=== PATIENT | male | born 1940 | race African-American/Black ===

== ENCOUNTER → 2019-05-19 | Outpatient (CLI) | payer MEDICARE | LOC: COL.RAD 05-03 09:45 | DX: K76.89 Other specified diseases of liver (principal); N28.1 Cyst of kidney, acquired; R79.89 Other specified abnormal findings of blood chemistry ==

== ENCOUNTER 2020-10-29 18:03 | Inpatient (IN) | payer MEDICARE ==
[~2020-10-29] VITALS: Ht 170.2 cm; Wt 79.8 kg
[2020-10-29 18:39] LABS: COLLECTION METHOD CLEAN CATCH
[2020-10-29 18:43] LABS: BASO % 0.1 % (0.0-2.0); EOS % 0.3 % (0-4.0); GRAN # 6.1 (1.4-6.5); GRAN % 89.7 % (42.2-75.2); LYMPH # 0.4 (1.2-3.4); LYMPH % 6.3 % (20.0-51.0); MEAN CELL VOLUME 93 fl (80.0-100.0); MEAN CORPUSCULAR HEMOGLOBIN 33 pg (27.0-31.0); MEAN CORPUSCULAR HGB CONC 35 g/dl (33.0-37.0); MEAN PLATELET VOLUME 9.8 fl (7.4-10.4); MONO # 0.2 (0.1-0.6); MONO % 3.5 % (1.7-9.3); PLATELET COUNT 188 K/mm3 (130-400); RED BLOOD COUNT 3.96 M/mm3 (4.20-5.60); REDCELL DISTRIBUTION WIDTH-CV 13.2 % (11.5-14.5)
[2020-10-29 18:45] LABS: PH 6 (5-8); SQUAMOUS EPITHELIAL None Seen /hpf; URINE APPEARANCE Clear; URINE BACTERIA None Seen /hpf; URINE BILIRUBIN Negative (NEGATIVE); URINE BLOOD 2+ (NEGATIVE); URINE COLOR Yellow; URINE GLUCOSE Negative (NEGATIVE); URINE KETONE 1+ (NEGATIVE); URINE LEUKOCYTE ESTERASE Negative (NEGATIVE); URINE NITRATE Negative (NEGATIVE); URINE PROTEIN(semi-quant) Negative (NEGATIVE); URINE UROBILINOGEN Negative (NEGATIVE)
[2020-10-29 18:49] LABS: HEMATOCRIT 36.8 % (42.0-52.0)
[2020-10-29 18:55] LABS: ALANINE AMINOTRANSFERASE 38 U/L (4-49); ALBUMIN 2.9 gm/dL (3.5-5.0); ALKALINE PHOSPHATASE 54 U/L (50-136); ANION GAP 6 mmol/L (7-16); AST,SGOT 104 U/L (15-37); BILIRUBIN,TOTAL 1.1 mg/dL (0.0-1.0); BLOOD UREA NITROGEN 29 mg/dL (9-20); CALCIUM 8.5 mg/dL (8.4-10.2); CARBON DIOXIDE 27 mmol/L (22-30); CHLORIDE 105 mmol/L (98-107); CREATININE, serum 1.48 (0.66-1.25); GLUCOSE 133 mg/dL (74-106); POTASSIUM 3.4 mmol/L (3.4-5.0); SODIUM 138 mmol/L (137-145); TOTAL PROTEIN 5.6 gm/dL (6.4-8.2)
[2020-10-29 19:01] LABS: CREATINE KINASE 2540 U/L (55-170)
[2020-10-29 19:11] LABS: TROPONIN-I < 0.012 ng/mL (0.000-0.035)
[2020-10-29] MEDS ORDERED: MAXZIDE 50 MG-71 TAB PO (20:33)
[2020-10-29] MEDS ORDERED: TOPROL XL100 MG PO (20:33)
[2020-10-29] MEDS ORDERED: ZOCOR 20MG20 MG PO (20:33)
[2020-10-29] MEDS ORDERED: ACCUPRIL40MGTAB PO (20:34)
[2020-10-29] MEDS ORDERED: K-DUR 10 MEQ T10 MEQ PO (20:35)
[2020-10-29] MEDS ORDERED: PROSCAR 5MG5 MG PO (20:35)
[2020-10-29 22:36] VITALS: BP 146/77; PULSE 53; TEMP 97.5
[2020-10-30] VITALS (9 sets, daily range): BP systolic 89–187; BP diastolic 57–91; PULSE 44–79; TEMP 97.4–99.1
[2020-10-30 07:02] LABS: ALBUMIN 2.3 gm/dL (3.5-5.0); BILIRUBIN,TOTAL 0.7 mg/dL (0.0-1.0); CALCIUM 7.8 mg/dL (8.4-10.2); CREATININE, serum 1.52 (0.66-1.25); TOTAL PROTEIN 4.6 gm/dL (6.4-8.2)
[2020-10-30 07:09] LABS: POTASSIUM 2.9 mmol/L (3.4-5.0)
[2020-10-30 07:46] LABS: BASO % 0.4 % (0.0-2.0); EOS # 0.1 (0.0-0.7); EOS % 2.6 % (0-4.0); GRAN # 3.6 (1.4-6.5); GRAN % 78.2 % (42.2-75.2); HEMOGLOBIN 11.6 g/dl (13.5-18.0); LYMPH # 0.6 (1.2-3.4); LYMPH % 11.9 % (20.0-51.0); MEAN CELL VOLUME 93 fl (80.0-100.0); MEAN CORPUSCULAR HEMOGLOBIN 33 pg (27.0-31.0); MEAN CORPUSCULAR HGB CONC 35 g/dl (33.0-37.0); MEAN PLATELET VOLUME 9.6 fl (7.4-10.4); MONO # 0.3 (0.1-0.6); MONO % 6.5 % (1.7-9.3); PLATELET COUNT 160 K/mm3 (130-400); RED BLOOD COUNT 3.57 M/mm3 (4.20-5.60); REDCELL DISTRIBUTION WIDTH-CV 13.2 % (11.5-14.5)
[2020-10-30 08:28] LABS: HEMATOCRIT 33.1 % (42.0-52.0)
[2020-10-31 03:43] VITALS: BP 169/89; PULSE 62; TEMP 97.6
[2020-10-31 07:00] LABS: HEMOGLOBIN 12.2 g/dl (13.5-18.0); MEAN CELL VOLUME 97 fl (80.0-100.0); MEAN CORPUSCULAR HEMOGLOBIN 33 pg (27.0-31.0); MEAN CORPUSCULAR HGB CONC 34 g/dl (33.0-37.0); MEAN PLATELET VOLUME 10.7 fl (7.4-10.4); PLATELET COUNT 164 K/mm3 (130-400); RED BLOOD COUNT 3.69 M/mm3 (4.20-5.60)
[2020-10-31 07:02] LABS: HEMATOCRIT 35.6 % (42.0-52.0)
[2020-10-31 07:18] LABS: CREATININE, serum 1.44 (0.66-1.25); POTASSIUM 3.1 mmol/L (3.4-5.0)
[2020-10-31 07:53] VITALS: BP 128/71; PULSE 56; TEMP 98.5
[2020-10-31 11:43] VITALS: BP 159/76; PULSE 51; TEMP 98.2
[2020-10-31 15:51] VITALS: BP 108/73; PULSE 79; TEMP 98.4
[2020-10-31 18:47] VITALS: BP 176/87; PULSE 60; TEMP 98
[2020-10-31 19:25] VITALS: BP 155/81
[2020-11-01 20:00] VITALS: BP 206/98; PULSE 55; TEMP 97.9
[2020-11-02 00:52] VITALS: BP 164/76; PULSE 50; TEMP 98
[2020-11-02 04:50] VITALS: BP 176/89; PULSE 58; TEMP 97.4
[2020-11-02 07:29] LABS: BASO # 0.1 (0.0-0.2); BASO % 1.4 % (0.0-2.0); EOS # 0.5 (0.0-0.7); EOS % 13.4 % (0-4.0); GRAN # 2.2 (1.4-6.5); GRAN % 60.7 % (42.2-75.2); HEMOGLOBIN 11.5 g/dl (13.5-18.0); LYMPH # 0.6 (1.2-3.4); LYMPH % 17.4 % (20.0-51.0); MEAN CELL VOLUME 95 fl (80.0-100.0); MEAN CORPUSCULAR HEMOGLOBIN 33 pg (27.0-31.0); MEAN CORPUSCULAR HGB CONC 34 g/dl (33.0-37.0); MEAN PLATELET VOLUME 10.2 fl (7.4-10.4); MONO # 0.3 (0.1-0.6); MONO % 6.8 % (1.7-9.3); PLATELET COUNT 169 K/mm3 (130-400); RED BLOOD COUNT 3.52 M/mm3 (4.20-5.60); REDCELL DISTRIBUTION WIDTH-CV 14.1 % (11.5-14.5)
[2020-11-02 07:31] LABS: HEMATOCRIT 33.5 % (42.0-52.0)
[2020-11-02 07:42] LABS: ALBUMIN 2.2 gm/dL (3.5-5.0); BILIRUBIN,TOTAL 0.6 mg/dL (0.0-1.0); CALCIUM 8.1 mg/dL (8.4-10.2); CREATININE, serum 1.16 (0.66-1.25); POTASSIUM 3.2 mmol/L (3.4-5.0); TOTAL PROTEIN 4.6 gm/dL (6.4-8.2)
[2020-11-02 08:00] VITALS: BP 94/54; PULSE 58; TEMP 97.7
[2020-11-02 11:58] VITALS: BP 125/74; PULSE 65; TEMP 97.4
[2020-11-02 13:09] LABS: CALCIUM 8.1 mg/dL (8.4-10.2); CREATININE, serum 1.33 (0.66-1.25); POTASSIUM 3.4 mmol/L (3.4-5.0)
[2020-11-02] MEDS ORDERED: TYLENOL 325MG325 MG PO (13:27)
[2020-11-02] MEDS ORDERED: ALDACTONE 25MG25 M1 PO (13:27)
[2020-11-02 15:36] LABS: BASO # 0.1 (0.0-0.2); BASO % 1.3 % (0.0-2.0); EOS # 0.4 (0.0-0.7); EOS % 11.1 % (0-4.0); GRAN # 2.3 (1.4-6.5); HEMATOCRIT 34.7 % (42.0-52.0); HEMOGLOBIN 11.7 g/dl (13.5-18.0); LYMPH # 0.8 (1.2-3.4); LYMPH % 20.6 % (20.0-51.0); MEAN CELL VOLUME 96 fl (80.0-100.0); MEAN CORPUSCULAR HEMOGLOBIN 33 pg (27.0-31.0); MEAN CORPUSCULAR HGB CONC 34 g/dl (33.0-37.0); MEAN PLATELET VOLUME 10.5 fl (7.4-10.4); MONO # 0.2 (0.1-0.6); MONO % 5.5 % (1.7-9.3); PLATELET COUNT 167 K/mm3 (130-400); REDCELL DISTRIBUTION WIDTH-CV 14.1 % (11.5-14.5)
== END 2020-11-02 16:30 | DRG 564 ==
LOC: COL.ER 18:03 → MEDICAL 19:10
PROVIDERS: Emergency Medicine; Hospitalist; Physician Assistant; Student in an Organized Health Care Education/Training Program; ADMIT Family Medicine
DX: T79.6XXA Traumatic ischemia of muscle, initial encounter (principal); G93.41 Metabolic encephalopathy; N17.9 Acute kidney failure, unspecified; I31.3 Pericardial effusion (noninflammatory); I10 Essential (primary) hypertension; E78.5 Hyperlipidemia, unspecified; N40.0 Benign prostatic hyperplasia without lower urinary tract symptoms; E86.0 Dehydration; E16.2 Hypoglycemia, unspecified; I95.1 Orthostatic hypotension; E87.6 Hypokalemia; D35.2 Benign neoplasm of pituitary gland; I08.3 Combined rheumatic disorders of mitral, aortic and tricuspid valves; M25.562 Pain in left knee; M25.561 Pain in right knee
CPT/HCPCS: 99223-AI; 99232-AI; 99239; A9585; G0378; J1644; J7030; J7120

== ENCOUNTER 2021-06-09 18:47 | Inpatient (IN) | payer MEDICARE ==
[~2021-06-09] VITALS: Ht 170.2 cm; Wt 73.7 kg
[~2021-06-09 18:47] MED LIST: ACCUPRIL40MGTAB PO; ALDACTONE 25MG25 M1 PO; K-DUR 10 MEQ T10 MEQ PO; MAXZIDE 50 MG-71 TAB PO; PROSCAR 5MG5 MG PO; TOPROL XL100 MG PO; TYLENOL 325MG325 MG PO; ZOCOR 20MG20 MG PO
[2021-06-09 20:21] LABS: BASO % 0.7 % (0.0-2.0); EOS # 0.3 (0.0-0.7); EOS % 6.8 % (0-4.0); GRAN # 3.1 (1.4-6.5); GRAN % 73.7 % (42.2-75.2); HEMOGLOBIN 12.2 g/dl (13.5-18.0); LYMPH # 0.5 (1.2-3.4); LYMPH % 12.7 % (20.0-51.0); MEAN CELL VOLUME 96 fl (80.0-100.0); MEAN CORPUSCULAR HEMOGLOBIN 33 pg (27.0-31.0); MEAN CORPUSCULAR HGB CONC 35 g/dl (33.0-37.0); MEAN PLATELET VOLUME 9.9 fl (7.4-10.4); MONO # 0.3 (0.1-0.6); MONO % 5.9 % (1.7-9.3); PLATELET COUNT 133 K/mm3 (130-400); RED BLOOD COUNT 3.68 M/mm3 (4.20-5.60); REDCELL DISTRIBUTION WIDTH-CV 14.1 % (11.5-14.5)
[2021-06-09 20:23] LABS: HEMATOCRIT 35.4 % (42.0-52.0)
[2021-06-09 20:38] LABS: ALANINE AMINOTRANSFERASE 20 U/L (0-55); ALBUMIN 2.7 gm/dL (3.4-4.8); ALKALINE PHOSPHATASE 48 U/L (0-750); ANION GAP 8 mmol/L (7-16); AST,SGOT 35 U/L (5-34); BILIRUBIN,TOTAL 0.4 mg/dL (0.2-1.2); BLOOD UREA NITROGEN 24 mg/dL (8-26); CALCIUM 8.3 mg/dL (8.4-10.2); CARBON DIOXIDE 22 mmol/L (23-31); CHLORIDE 104 mmol/L (98-107); CREATININE, serum 1.09 mg/dL (0.72-1.25); GLUCOSE 103 mg/dL (70-99); POTASSIUM 4.3 mmol/L (3.5-4.5); SODIUM 134 mmol/L (136-145); TOTAL PROTEIN 5.3 gm/dL (6.2-8.1)
[2021-06-09 20:44] LABS: TROPONIN-I < 0.010 ng/mL (0.00-0.033)
[2021-06-09 22:38] LABS: INR 1.1 (0.8-3.0); PROTHROMBIN TIME 12.2 SECONDS (9.7-12.8)
[2021-06-09 22:41] LABS: PARTIAL THROMBOPLASTIN TIME 28.8 SECONDS (26.0-37.0)
[2021-06-10] VITALS (7 sets, daily range): BP systolic 35–134; BP diastolic 24–91; PULSE 84–124; TEMP 97.6–98.6
[2021-06-10] MEDS ORDERED: ASPIRIN 32325 MG/TAB PO (00:05)
[2021-06-10] MEDS ORDERED: ALEVE 220MG220 MG PO (00:05)
--- NOTE | 2021-06-10 00:30 | NUR ---
Patient arrived to medical unit from ER at approximately 2330. Alert and oriented x 4. Reported some cramping to right thigh that went away after being repositioned. On Heparin drip per protocol. LS CTA. Respirations even and unlabored. Telemetry in place, A-fib ranging from 60s-110s. Voices no questions, needs, or concerns at this time. Resting in bed with call light within reach.
--- NOTE | 2021-06-10 01:00 | NUR ---
External catheter placed per PINKY Fang. UA obtained and sent to lab.
[2021-06-10 01:28] LABS: COLLECTION METHOD CLEAN CATCH
[2021-06-10 01:36] LABS: PH 8 (5-8); SQUAMOUS EPITHELIAL None Seen /hpf; URINE APPEARANCE Clear; URINE BACTERIA None Seen /hpf; URINE BILIRUBIN Negative (NEGATIVE); URINE BLOOD Negative (NEGATIVE); URINE COLOR Straw; URINE GLUCOSE Negative (NEGATIVE); URINE KETONE Negative (NEGATIVE); URINE LEUKOCYTE ESTERASE Negative (NEGATIVE); URINE NITRATE Negative (NEGATIVE); URINE PROTEIN(semi-quant) Negative (NEGATIVE); URINE RBC 0-2 /hpf; URINE UROBILINOGEN Negative (NEGATIVE)
--- NOTE | 2021-06-10 05:31 | NUR ---
Patient has denied pain and discomfort this shift. Continues to be in A-fib on telemetry, rate controlled at this time. Continues on Heparin drip per protocol. Awaiting morning labs for HepXa. Resting in bed with call light within reach.
--- NOTE | 2021-06-10 06:13 | NUR ---
Patient is in normal sinus rhythm on Telemetry at this time.
--- NOTE | 2021-06-10 07:10 | NUR ---
Report received from Elizabeth ARANDA. Pt lying in bed, lab at bedside attempting blood draw for AM labs and hep xa. Pt denies needs. Call light in reach.
[2021-06-10 08:17] LABS: EOS # 0.5 (0.0-0.7); GRAN # 2.5 (1.4-6.5); GRAN % 61.1 % (42.2-75.2); HEMOGLOBIN 12.4 g/dl (13.5-18.0); LYMPH # 0.8 (1.2-3.4); LYMPH % 18.6 % (20.0-51.0); MEAN CELL VOLUME 99 fl (80.0-100.0); MEAN CORPUSCULAR HEMOGLOBIN 34 pg (27.0-31.0); MEAN CORPUSCULAR HGB CONC 34 g/dl (33.0-37.0); MEAN PLATELET VOLUME 10.7 fl (7.4-10.4); MONO # 0.3 (0.1-0.6); MONO % 7.1 % (1.7-9.3); PLATELET COUNT 142 K/mm3 (130-400); RED BLOOD COUNT 3.69 M/mm3 (4.20-5.60); REDCELL DISTRIBUTION WIDTH-CV 14.4 % (11.5-14.5)
[2021-06-10 08:19] LABS: HEMATOCRIT 36.4 % (42.0-52.0)
--- NOTE | 2021-06-10 08:40 | NUR ---
Hep Xa critical at 1.83, notified and heparin gtt placed on standby per protocol. Next HepXa recheck at 1030.
[2021-06-10 09:09] LABS: TROPONIN-I 0.015 ng/mL (0.00-0.033)
[2021-06-10 09:12] LABS: CALCIUM 8.2 mg/dL (8.4-10.2); CREATININE, serum 0.9 mg/dL (0.72-1.25); POTASSIUM 4.6 mmol/L (3.5-4.5)
--- NOTE | 2021-06-10 09:20 | NUR ---
Shift assessment complete. Pt A&Ox4, weakness to BLE. Heart RRR. Lungs CTA. Right eye w/o response, pt reports this is due to past surgery. Heparin gtt on hold per protocol at this time. Denies pain, SOA, dizziness, or lightheadedness. Fall precautions in place. Continuing to monitor.
--- NOTE | 2021-06-10 10:15 | NUR ---
Orthostatic BPs ordered, CONSULTANT IN ERGONOMICS AND SAFETY attempted to get these around 0800. Pt had syncopal episode when attempting to stand and was assisted back onto the bed by CONSULTANT IN ERGONOMICS AND SAFETY. CONSULTANT IN ERGONOMICS AND SAFETY reports pt looked "confused" and was not responding to her questions. After lying back down, assessed by this RN and pt A&Ox4. Denied feeling dizzy or lightheaded during episode. Reattempted orthostatic BPs at this time w/this RN, CONSULTANT IN ERGONOMICS AND SAFETY, and PT. Initial BP while lying in bed was 98/77. Pt assisted to sit on edge of bed and BP 75/36. Pt assisted to stand at side of bed x3 assist w/gait belt and walker, BP dropped to 35/24. At this time, pt reported feeling lightheaded and nauseous and was assisted back into bed. notified and IV fluids ordered and started. Pt on bedrest at this time.
[2021-06-10 11:17] LABS: PARTIAL THROMBOPLASTIN TIME > 400.0 SECONDS (26.0-37.0)
--- NOTE | 2021-06-10 11:21 | NUR ---
notified of critical HepXa and PTT. Heparin gtt remains on hold per protocol. Next recheck at 1230.
[2021-06-10 13:30] LABS: PARTIAL THROMBOPLASTIN TIME 56.1 SECONDS (26.0-37.0)
--- NOTE | 2021-06-10 13:52 | NUR ---
Sw met with the pt who stated his preference to return home with his daughter once he is medically stable. The pt informed Sw that his children do not want him to live alone anymore. He plans live with his daughter, Kavitha [phone]. Pt informed me she makes his health care decisions as well. The pt is independent on all ADLS but does use a cane/walker. The pt pcp is Dr. Gera keen get his medications from [facility]. No other needs stated at this time. Sw to await for further recommendations and follow up as needed. D/c: Home w/daughter
--- NOTE | 2021-06-10 22:02 | NUR ---
Heparin drip changed from 11 mls/hr to 950 ml/hr at 2019 per protocol. Will recheck at 0220. Denies pain and discomfort. Telemetry showing A-fib 90s. Neuro checks WNL for patient. Patient stated that he needed to have a bowel movement. For safety purposes, explained to patient that he needs to use a bedpan. Voiced understanding. Able to have small BM according to PCT. Voices no further questions, needs, or concerns at this time. Resting in bed with call light within reach.
[2021-06-11] VITALS (220 sets, daily range): BP systolic 71–156; BP diastolic 22–103; PULSE 46–190; TEMP 97.7–98.8; O2SAT 53–100
--- NOTE | 2021-06-11 02:56 | NUR ---
HepXa in goal range. Order placed to recheck at 0820.
--- NOTE | 2021-06-11 06:04 | NUR ---
Patient has had small BM on bedpan this shift. Has denied pain and discomfort. Telemetry showing A-fib, rate controlled at this time. Patient has been NPO since midnight for echo, MRI brain, and loop recorder for today. Voices no questions, needs, or concerns at this time. Resting in bed with call light within reach.
--- NOTE | 2021-06-11 08:35 | NUR ---
Patient resting in bed upon entering room. Shift assessment done. +3 pitting edema noted on BLE and +1 edema noted on RUE. Patient is A&O. VSS. External catheter in place. Securment device in use. Patient is NPO for loop recorder placement later in day. Patient denies any pain, discomfort, SOA, or further needs at this time. Call light in reach. Fall precautions in place.
[2021-06-11 08:49] LABS: HEMATOCRIT 38.1 % (42.0-52.0); MEAN CELL VOLUME 96 fl (80.0-100.0); MEAN CORPUSCULAR HEMOGLOBIN 33 pg (27.0-31.0); MEAN CORPUSCULAR HGB CONC 34 g/dl (33.0-37.0); MEAN PLATELET VOLUME 10.2 fl (7.4-10.4); PLATELET COUNT 141 K/mm3 (130-400); RED BLOOD COUNT 3.99 M/mm3 (4.20-5.60); REDCELL DISTRIBUTION WIDTH-CV 14.2 % (11.5-14.5)
[2021-06-11 09:04] LABS: CALCIUM 7.8 mg/dL (8.4-10.2); CREATININE, serum 0.96 mg/dL (0.72-1.25); POTASSIUM 4.9 mmol/L (3.5-4.5)
--- NOTE | 2021-06-11 09:19 | NUR ---
Initial visit; Patient thanked Party Demonstrator for looking in on him, visiting and listening along with offering a prayer, a successful surgical procedure and God's blessings.
--- NOTE | 2021-06-11 14:35 | NUR ---
STAT EKG DONE ON PT. HR 170-190 PLACED ON 2 DIRECTOR OF EARLY CHILDHOOD NC THEN 15 LPM OXYMASK. PLACED ON BIPAP 18/8 90% RR 24. PT UNRESPONSIVE AFTER CARDIOVERSION. TRANSFERED TO ICU 5 ON BIPAP.
--- NOTE | 2021-06-11 16:00 | NUR ---
Telemetry notified this RN that patient was in AFIB RVR with rates ranging between 170-190. Patient hypotensive with pressures in the 50's/40's. Dr. Salvador notified. Instructed to bolus patient with NS and inform if patient is not improved. Patient not improved. Dr. Salvador, Dr. Park, Charge Nurse, and forge shop supervisor contacted. It was determined that patient needed to be cardioverted. 1445 2 mg Versed given 1447 2 mg Versed given 1448 1 shock at 150 joules synchronized administered, patient back in normal rythm Patient unresponsive after cardioversion. Oxymask applied, unable to get accurate oxygen saturation. 1510 Ambu bag in use 1515 NS bolus given 1518 .2 mg of Flumazenil given 1520 Patient placed on Bipap Patient began to respond, BP became stable. Patient transferred to ICU 5. Report given to MANOJ Bell.
--- NOTE | 2021-06-11 16:20 | NUR ---
The patient became hypotensive. The patient's daughter, Kavitha (ph#[phone]), was contacted and she arrived to the hospital. CHACORTA met with Kavitha and provided support. Kavitha reports she is unsure if the patient has a DPOA-HC. She states if he does, his new PCP (Dr. Stone), may have a copy of the DPOA-HC. CHACORTA contacted Dr. Stone's office to inquire if they have a DPOA-HC on file. The open shank coverer reports that they do not. CHACORTA updated Kavitha. Kavitha reports that the patient has five living children: herself, Rashad, Newton, Brent, and Kristen. Kavitha reports that Kristen does drugs and is unstable. The patient transferred down to the ICU for amiodarone drip. CHACORTA to continue to follow.
--- NOTE | 2021-06-11 17:02 | NUR ---
Patient in sinus rhythm with heart rate 58-62. Called Dr. Murray to ask if patient should still get Amiodarone bolus and drip. Ordered to hold off on Amiodarone for now. If goes back into A-fib RVR can initiate amio bolus and drip. Also notified Dr. Murray that a reliable 02 reading has not been able to be obtained despite trying multiple monitor devices and placing mulitple monitoring devices and placing hand warmers. If cannot obtain o2 reading can call anethesia to place art line to obtain blood gases as needed.
--- NOTE | 2021-06-11 17:14 | NUR ---
Patient requesting to remove BIPAP. Alert and oriented and denies any shortness of breath Changed o2 probe on forehead and was able to get a reading of 100% on 5L NC. Will continue to monitor.
[2021-06-11 17:56] LABS: BASO % 0.5 % (0.0-2.0); EOS # 0.4 (0.0-0.7); GRAN # 2.7 (1.4-6.5); GRAN % 69.9 % (42.2-75.2); HEMOGLOBIN 12.4 g/dl (13.5-18.0); LYMPH # 0.6 (1.2-3.4); LYMPH % 15.7 % (20.0-51.0); MEAN CELL VOLUME 96 fl (80.0-100.0); MEAN CORPUSCULAR HEMOGLOBIN 33 pg (27.0-31.0); MEAN CORPUSCULAR HGB CONC 34 g/dl (33.0-37.0); MEAN PLATELET VOLUME 9.8 fl (7.4-10.4); MONO # 0.2 (0.1-0.6); MONO % 4.9 % (1.7-9.3); PLATELET COUNT 149 K/mm3 (130-400); RED BLOOD COUNT 3.76 M/mm3 (4.20-5.60); REDCELL DISTRIBUTION WIDTH-CV 14.1 % (11.5-14.5)
[2021-06-11 17:59] LABS: HEMATOCRIT 36.2 % (42.0-52.0)
[2021-06-11 18:22] LABS: ALBUMIN 2.3 gm/dL (3.4-4.8); BILIRUBIN,TOTAL 0.4 mg/dL (0.2-1.2); CALCIUM 7.6 mg/dL (8.4-10.2); CREATININE, serum 0.88 mg/dL (0.72-1.25); POTASSIUM 4.6 mmol/L (3.5-4.5); TOTAL PROTEIN 4.8 gm/dL (6.2-8.1)
--- NOTE | 2021-06-11 18:23 | NUR ---
Patient hypertensive with systolic 150-160 and dystolic in 100's. Dr. Murray notified. Recommended to not treat at this time due to labile BP and heart rate. However, Dr. Murray requested this nurse notify the hospitalist for their recommendations. PINKY Nieves notified and will put in orders for PRN hydralazine.
[2021-06-12] VITALS (411 sets, daily range): BP systolic 132–170; BP diastolic 76–138; PULSE 45–66; TEMP 97.8–98.5; O2SAT 30–100
--- NOTE | 2021-06-12 03:04 | NUR ---
PATIENT HAS RESTED THROUGHOUT THE NIGHT AND HAS FALLEN BACK ASLEEP QUICKLY BETWEEN ASSESSMENT. MR. BLANCHARD DENIES ANY PAIN OR DISCOMFORT. LIGHTS ARE OFF IN ROOM AND CALL LIGHT IS IN REACH. WILL CONTINUE TO MONITOR
--- NOTE | 2021-06-12 08:30 | NUR ---
This am patient is awake in bed watching tv. PT denies pain, shortness of breath or dizziness. PT states he is upset people come in his room and leave in a hurry before covering him back up or moving his belongings within reach. This RN makes a note on white board and puts all items within patients reach to include his call light. PT assessment and vitals are unremarkable. Pt appears comfortable.
--- NOTE | 2021-06-12 12:15 | NUR ---
SW met with patient at bedside to discuss discharge planning. Patient states he lives alone in [place] in a house that has 2 steps to enter. Patient has several children but he states that his daughter, Kavitha ([phone]), who lives in [place], is the only one who is single and "able" to care for him. He told this worker that he plans to go home with dtr for a couple of weeks and if it works out, he may move to [place] to live with her. This worker asked if this was agreeable to dtr, he said yes and she is my financial POA. Patient states he does not have a MPOA but would like to complete form to make Kavitha his agent. Patient reports he has a walker and cane but no oxygen needs. His PCP is Dr. Stone and he receives his medications from [facility] with no difficulty. Skilled rehab was discussed with patient as a probability d/t his weakness. Patient would like for this worker to speak with dtr. CHACORTA will follow up with Kavitha regarding d/c plan and MPOA. *D/C Plan: anticipate skilled rehab pending p/t o/t evaluations
--- NOTE | 2021-06-12 14:49 | NUR ---
METAL MILLING MACHINE OPERATOR NOTIFIES PATIENT IS UNABLE TO GET A MRI POST LOOP RECORDER PLACEMENT FOR 6 WEEKS.
--- NOTE | 2021-06-12 19:02 | NUR ---
PT had an uneventful day. PT has been in SR. No new complaints. Is not sure he wants a pacemaker placement at this time and discussed his concerns with Dr. Murray. Pt states he will possibly make this decision outpatient as he does not wish to stay in the hospital until then. PT is currently visiting with his daughter resting in bed. PT call light in reach.
--- NOTE | 2021-06-12 19:30 | NUR ---
Received report from MANOJ Baugh.
--- NOTE | 2021-06-12 19:53 | NUR ---
Pt repot given to MANOJ Chavez
--- NOTE | 2021-06-12 22:00 | NUR ---
Patient assisted to bedside commode with two-person assist. Patient full weight bearing although unsteady on his feet. Tolerated transfer from and to bed well. Vitals remained within normal limits.
[2021-06-13] VITALS (25 sets, daily range): BP systolic 133–174; BP diastolic 81–95; PULSE 54–60; TEMP 97.9–98.7; O2SAT 72–100
[2021-06-13 06:14] LABS: BASO % 0.3 % (0.0-2.0); EOS # 0.4 K/mm3 (0.0-0.7); GRAN % 61.9 % (42.2-75.2); LYMPH # 0.6 K/mm3 (1.2-3.4); MEAN CELL VOLUME 95 fl (80.0-100.0); MEAN CORPUSCULAR HEMOGLOBIN 33 pg (27.0-31.0); MEAN CORPUSCULAR HGB CONC 35 g/dl (33.0-37.0); MEAN PLATELET VOLUME 9.9 fl (7.4-10.4); MONO # 0.2 K/mm3 (0.1-0.6); MONO % 6.5 % (1.7-9.3); PLATELET COUNT 129 K/mm3 (130-400); RED BLOOD COUNT 3.32 M/mm3 (4.20-5.60); REDCELL DISTRIBUTION WIDTH-CV 13.7 % (11.5-14.5)
[2021-06-13 06:15] LABS: HEMATOCRIT 31.5 % (42.0-52.0)
[2021-06-13 06:31] LABS: CALCIUM 7.9 mg/dL (8.4-10.2); CREATININE, serum 0.9 mg/dL (0.72-1.25); MAGNESIUM 1.8 mg/dL (1.6-2.6); POTASSIUM 4.2 mmol/L (3.5-4.5)
--- NOTE | 2021-06-13 07:25 | NUR ---
Report given to MANOJ Baugh, and MANOJ Barber.
--- NOTE | 2021-06-13 10:42 | NUR ---
PT RESTING COMFORTABLY IN BED, DENIES PAIN. AAOX3, UNDERSTANDS POC. NOTED RT PUPIL 8MM FIXED, SECONDARY TO KNOWN DIAGNOSIS. NEURO OTHERWISE INTACT. NOTED EDEMA TO RUE, REPORTED FROM SHOULDER INJURY. NO PAIN, BUT LIMITED ROM. HAND ON RT COOLER THAN LEFT, BUT PULSES INTACT, GOOD CAP REFILL. RUE ELEVATED ON PILLOW. FREEDOM CATH IN PLACE, PAD UNDER CHANGED DUE TO SOME LEAKING. WILL REPOSITION PT TO COMFORT NEEDED, STATES NO QUESTIONS OR CONCERNS AT THIS TIME. WILL CONTINUE TO MONITOR.
--- NOTE | 2021-06-13 11:40 | NUR ---
DR JACK PRESTON. D/C PTS IVF, STOPPED. OPEN TRIPLE LUMEN (WHITE) FLUSHED. PT STATES IS COMFORTABLE, NO NEEDS AT THIS TIME.
--- NOTE | 2021-06-13 13:47 | NUR ---
Patient requested POA form and this worker provided the form to patient. SW also contacted patient's dtr, Kavitha, by phone to let her know that I can assist with completing form but advised patient not to sign without 2 witnesses. Kavitha plans to be at the hospital on .
--- NOTE | 2021-06-13 14:40 | NUR ---
PT TRANSPORTED UPSTAIRS TO ROOM 314 VIA WHEELCHAIR. MANOJ BILLINGSLEY MET PT IN ROOM. RELINQUISHED CARE AT THIS TIME.
--- NOTE | 2021-06-13 14:46 | NUR ---
REPORT CALLED TO JOSE CRUZ SANDOVAL RN. PHYSICAL THERAPY IN ROOM, HELPED TO TRANSFER TO WHEELCHAIR.
--- NOTE | 2021-06-13 19:10 | NUR ---
REPORT GIVEN TO MANOJ WIGGINS NO CONCERNS.
--- NOTE | 2021-06-13 20:00 | NUR ---
At time of assessment, patient's daughter is at bedside filling out DPOA paperwork. Patient has no complaints of pain; only when he moves his right shoudler/arm which is swollen from a previous fall. Hep gtt infusing. Patient on RA. External catheter is leaking and is exchanged at this time. Comfort measures provided and call light in reach.
[2021-06-14] VITALS (9 sets, daily range): BP systolic 74–171; BP diastolic 41–90; PULSE 54–69; TEMP 98.1–99.5
--- NOTE | 2021-06-14 13:15 | NUR ---
PT DISCHARGE HOME ON STABLE CONDITION. D/C INSTRUCTIONS, MEDICATION AND FOLLOW UP REVEIWED WITH PT QUESTIONS AND CONCERNS ADDRESSED
--- NOTE | 2021-06-14 14:24 | NUR ---
Primary nurse was assisted with [phone] patient care by [employer] student Geri Tay and [employer] instructor Eva Davidson MSN, RN
--- NOTE | 2021-06-14 15:03 | NUR ---
Watch Assembler and CHACORTA Nieves followed up with patient to discuss discharge planning. SW reviewed PT/OT recommendation for post acute rehab. Patient states he is open to post acute rehab as long as he can have visitors. Patient advised he has been to [facility] previously and would prefer not to return there. Patient is agreeable to have referrals sent to [facility], [facility], [facility] CHACORTA Nieves contacted [facility] and [facility] to gather information about their visitation policy and give referrals. CHACORTA Nieves also faxed clinical information to [facility] to submit for authorization. [facility]ORT[facility] to give [facility]. Patient completed his DPOA-HC form designating his daughter, Kavitha and his son, Newton. CHACORTA and CHACORTA Nieves provided witness signature. CHACORTA then provided patient with original and copies and placed a copy in patient's chart. CHACORTA then contacted patient's daughter, Kavitha to provide update. Kavitha verbalized understanding and requested update from Hospitalist. CHACORTA contacted Hospitalist to pass along this request. Discharge Plan: Pending screens from [facility], [facility] and [facility]
--- NOTE | 2021-06-14 20:15 | NUR ---
Initial shift assessment done- VSS, Tele on, has heparin drip at 9cc/hr, will get another hepxa at 2100, alert/oriented, forgetful at times, pleasant. Has condom cath on-urine clear yellow. Has R/TLC.
--- NOTE | 2021-06-14 22:30 | NUR ---
hep xa 0.50, rate stays at 9cc/hr,,next hepxa in the am
[2021-06-15 03:38] VITALS: BP 149/78; PULSE 54; TEMP 98.4
--- NOTE | 2021-06-15 05:15 | NUR ---
Very quiet night- patient sleeping quietly-refused to be turned-- states he is so comfortable, external cath working well- draining mehnaz urine
[2021-06-15 07:13] VITALS: BP 147/75; PULSE 56; TEMP 99
--- NOTE | 2021-06-15 08:30 | NUR ---
wafer line worker contacted by Olvin at [facility]- states they clinically accept patient pending insurance approval.
[2021-06-15 11:27] VITALS: BP 145/69; PULSE 54; TEMP 98.3
--- NOTE | 2021-06-15 13:56 | NUR ---
Primary nurse was assisted with [phone] patient care by [employer] student Shannan Tay and [employer] instructor Eva Davidson MSN, RN
--- NOTE | 2021-06-15 15:04 | NUR ---
Insurance approval still pending. Clinical updates faxed to [facility]. [facility] won't have an answer until Friday.
[2021-06-15 15:41] VITALS: BP 111/62; PULSE 52; TEMP 98.7
[2021-06-15 19:33] VITALS: BP 146/74; PULSE 56; TEMP 99.2
--- NOTE | 2021-06-15 23:38 | NUR ---
ALERT AND OX4. DAUGHTER AT BEDSIDE DURING SHIFT CHANGE. EATING DINNER. DENIES SOA CHEST PAIN OR DIZZY. C/O RT SHOULDER PAIN, TYL GIVEN W PM MEDS. CONDOM CATH IN PLACE. MRI SCHEDULED. TELE SR SB. CALL LIGHT WI REACH. NEEDS MET.
[2021-06-15 23:46] VITALS: BP 133/67; PULSE 50; TEMP 98.4
[2021-06-16 05:01] VITALS: BP 152/73; PULSE 51; TEMP 98.7
--- NOTE | 2021-06-16 05:48 | NUR ---
Rested the night without incident. AM labs drawn.
[2021-06-16 06:58] VITALS: BP 164/87; PULSE 50; TEMP 98.5
[2021-06-16 07:07] LABS: HEMOGLOBIN 10.9 g/dl (13.5-18.0); MEAN CELL VOLUME 96 fl (80.0-100.0); MEAN CORPUSCULAR HEMOGLOBIN 33 pg (27.0-31.0); MEAN CORPUSCULAR HGB CONC 35 g/dl (33.0-37.0); MEAN PLATELET VOLUME 10.2 fl (7.4-10.4); PLATELET COUNT 117 K/mm3 (130-400); RED BLOOD COUNT 3.26 M/mm3 (4.20-5.60); REDCELL DISTRIBUTION WIDTH-CV 13.5 % (11.5-14.5)
[2021-06-16 07:10] LABS: HEMATOCRIT 31.3 % (42.0-52.0)
[2021-06-16 07:29] LABS: CALCIUM 7.9 mg/dL (8.4-10.2); CREATININE, serum 1.06 mg/dL (0.72-1.25); POTASSIUM 3.8 mmol/L (3.5-4.5)
[2021-06-16 07:48] LABS: BAND 28 % (0-10); EOSINOPHIL 8 % (0-4); LYMPHOCYTE 6 % (20.0-51.0); NEUTROPHILS 55 % (42.0-75.2); PLATELET ESTIMATE DECREASED (NORMAL)
[2021-06-16 11:57] VITALS: BP 148/70; PULSE 58; TEMP 98.2
--- NOTE | 2021-06-16 14:16 | NUR ---
PT HAS HAD UNEVENTFUL DAY. PT HAS HAD SMALL BOUT OF WATERY DIARRHEA. HE DENIES ANY OTHER COMPLAINTS. NO FURTHER CONCERNS.
[2021-06-16 16:00] VITALS: BP 146/73; PULSE 51; TEMP 99.4
--- NOTE | 2021-06-16 16:00 | NUR ---
Pt resting in bed. Catheter was leaking, found partially off. Discussed using a urinal and he agreed. Bed changed at this time. No pain complaints. Pt reported that his right arm bothered him yesterday, but is not today. Elevated on pillow. Heels also elevated off the bed.
[2021-06-16 20:13] VITALS: BP 139/73; PULSE 90; TEMP 98.9
[2021-06-17 00:40] VITALS: BP 160/75; PULSE 47; TEMP 98.7
[2021-06-17 04:45] VITALS: BP 127/64; PULSE 45; TEMP 98.2
--- NOTE | 2021-06-17 06:10 | NUR ---
RESTED THOUGH THE NIGHT WITHOUT INCIDENT. AM LABS DRAWN PER TRIPLE LUMEN IJ. CALL LIGHT WI REACH. NEEDS MET.
--- NOTE | 2021-06-17 07:20 | NUR ---
Pt is awake and laying in bed, denies any issues. Breakfast ordered. Pt's right arm is very edematous this morning. No further concerns at this time.
[2021-06-17 07:29] VITALS: BP 133/64; PULSE 42; TEMP 98.3
[2021-06-17 07:44] LABS: MEAN CELL VOLUME 95 fl (80.0-100.0); MEAN CORPUSCULAR HEMOGLOBIN 34 pg (27.0-31.0); MEAN CORPUSCULAR HGB CONC 35 g/dl (33.0-37.0); MEAN PLATELET VOLUME 10.2 fl (7.4-10.4); PLATELET COUNT 117 K/mm3 (130-400); RED BLOOD COUNT 3.28 M/mm3 (4.20-5.60); REDCELL DISTRIBUTION WIDTH-CV 13.5 % (11.5-14.5)
[2021-06-17 07:46] LABS: HEMATOCRIT 31.1 % (42.0-52.0)
[2021-06-17 08:03] LABS: CREATININE, serum 1.03 mg/dL (0.72-1.25); POTASSIUM 3.8 mmol/L (3.5-4.5)
[2021-06-17 09:43] LABS: BAND 19 % (0-10); EOSINOPHIL 12 % (0-4); LYMPHOCYTE 18 % (20.0-51.0); NEUTROPHILS 44 % (42.0-75.2); PLATELET ESTIMATE DECREASED (NORMAL)
[2021-06-17 10:36] LABS: PARTIAL THROMBOPLASTIN TIME 32.5 SECONDS (26.0-37.0)
[2021-06-17 11:24] VITALS: BP 146/57; PULSE 50; TEMP 98.3
[2021-06-17 16:13] VITALS: BP 117/70; PULSE 48; TEMP 98.2
--- NOTE | 2021-06-17 20:15 | NUR ---
Initial shift assessment done- denies pain, watching TV, tele on- bradycardia 40-50,s ,, heparin drip is off , will recheck hepxa at 2100- TLC to right subclavian. Right upper extremity edematous.
[2021-06-17 20:37] VITALS: BP 124/61; PULSE 51; TEMP 98.8
--- NOTE | 2021-06-17 21:30 | NUR ---
Hepxa 0.44,, swati restart heparin drip at 11.5cc/hr, next hepxa at 0330.
[2021-06-18] VITALS (7 sets, daily range): BP systolic 113–160; BP diastolic 63–80; PULSE 44–52; TEMP 97.6–98.6
--- NOTE | 2021-06-18 04:46 | NUR ---
Hepxa 0.90--will stop heparin drip for 1 hour , then will restart at 9.5cc/hr
--- NOTE | 2021-06-18 05:50 | NUR ---
Heparin drip restarted at 9.5cc/hr per protocol , next hepxa at 1145
--- NOTE | 2021-06-18 07:00 | NUR ---
Report received from MANOJ Chavarria.Pt in bed resting, denies needs, will continue to monitor.
--- NOTE | 2021-06-18 14:15 | NUR ---
Sales Operations Consultant made contact with [employer] and was given authorization number [id number]. CHACORTA was advised patient is approved for skilled stay upon discharge, they will just need to be notified admit date to SNF. CHACORTA faxed clinical updates to Olvin at [facility] and provided auth #. CHACORTA collaborated with Hospitalist who advised [facility] would likely not be able to accept patient. CHACORTA followed up with patient and advised that [facility] is able to accept upon discharge and patient is agreeable to this. CHACORTA also updated Kavitha who is agreeable to this plan, however has many questions about patient having pacemaker placed and would like to speak with the Hospitalist. CHACORTA updated PINKY Stacy. Discharge Plan: [facility] SNF
--- NOTE | 2021-06-18 18:28 | NUR ---
Pt in bed resting, did state he does want to have pacemaker around noon but at 330 pm when daughter arrived she stated she "had questions for cardiology before she would agree". Called Janet and he was in clinic at the time but relayed that he would be around in the morning and able to answer questions at that time. Denies needs, will give report to nightshift nruse who will resume care.
--- NOTE | 2021-06-18 20:30 | NUR ---
Initial shift assessment done- denies pain at this time, right arm up on pillow- remains edematous, continues with heparin drip at 8cc/hr- next hepxa at [place], TELE on- bradycardic at 40,s,, NPO after MN for pacemaker tomorrow, Did have an episode of diarrhea tonight-x1--liquid light brown stool, lots of gas. Will be NPO after MN
--- NOTE | 2021-06-19 00:20 | NUR ---
Hepxa back at 0.42-in goal range, will do next hepxa 0600
[2021-06-19 03:16] VITALS: BP 136/69; PULSE 49; TEMP 98.3
--- NOTE | 2021-06-19 05:39 | NUR ---
Quiet night- slept well, Did have another episode of liquid stool this morning, cleaned up/repositioned. Tele on-- HR did go down to 38/min for just very short periods of time,back up to mid 40,s for majority of shift. Going for pacemaker today- NPO
[2021-06-19 07:00] VITALS: BP 148/69; PULSE 47; TEMP 98.6
--- NOTE | 2021-06-19 07:09 | NUR ---
appears to be dozing, awakens easily and bedside shift report received from MANOJ Chavarria
[2021-06-19 07:23] LABS: HEMOGLOBIN 10.9 g/dl (13.5-18.0); MEAN CELL VOLUME 93 fl (80.0-100.0); MEAN CORPUSCULAR HEMOGLOBIN 33 pg (27.0-31.0); MEAN CORPUSCULAR HGB CONC 35 g/dl (33.0-37.0); MEAN PLATELET VOLUME 10.6 fl (7.4-10.4); PLATELET COUNT 136 K/mm3 (130-400); RED BLOOD COUNT 3.32 M/mm3 (4.20-5.60); REDCELL DISTRIBUTION WIDTH-CV 13.4 % (11.5-14.5)
[2021-06-19 07:27] LABS: HEMATOCRIT 30.8 % (42.0-52.0)
--- NOTE | 2021-06-19 08:30 | NUR ---
student GERIATRIC SOCIAL WORKER and her instuctor in providing incontinent care of urine and loose liquid stool, has reddened area on left side of buttocks near cocyx, Deysi VANCE notified of loose stool
--- NOTE | 2021-06-19 10:00 | NUR ---
Dr. Gonzales in to see patient and his daughter is now at bedside, are agreeing now to have pacemaker placed later today, full assessment completed, see interventions for further info, has 6 cm darker brown area across back that appears to be an old scar that is dry,
[2021-06-19 10:25] VITALS: BP 149/72; PULSE 45; TEMP 97.9
--- NOTE | 2021-06-19 11:00 | NUR ---
resting in bed on left side, daughter at bedside and conent signed for pacemaker later today
--- NOTE | 2021-06-19 11:49 | NUR ---
has had no further loose stools this am at this time
[2021-06-19 12:04] VITALS: BP 147/70; PULSE 50; TEMP 98
--- NOTE | 2021-06-19 13:22 | NUR ---
reviewed all documentation/assessment completed by student nurse and in agreement with the documentation
[2021-06-19 13:31] LABS: CREATININE, serum 0.9 mg/dL (0.72-1.25)
[2021-06-19 13:33] LABS: CALCIUM 8.2 mg/dL (8.4-10.2); POTASSIUM 3.7 mmol/L (3.4-5.0)
--- NOTE | 2021-06-19 14:22 | NUR ---
resting in bed, looking at TV,
[2021-06-19 16:16] VITALS: BP 160/81; PULSE 47; TEMP 98.3
--- NOTE | 2021-06-19 16:18 | NUR ---
thought he was incontinent of stool but only had a smear, care provided for this, optical laboratory manager will be after current procedure,
--- NOTE | 2021-06-19 17:00 | NUR ---
to photofinishing laboratory worker per bed, daughter at bedside
--- NOTE | 2021-06-19 17:53 | NUR ---
returned to room per bed from dairy laboratory technician without having pacemaker placed, had to cancel due to emergency department patient,
--- NOTE | 2021-06-19 18:44 | NUR ---
waiting on supper, bedside shift report given to MANOJ Lindquist
[2021-06-19 19:30] VITALS: BP 128/67; PULSE 51; TEMP 98
--- NOTE | 2021-06-19 20:16 | NUR ---
Assessment complete. Patient's daughter currently at bedside; questions regarding cholesterol medicine answered. Patient is alert and oriented with no complaints of pain. HR is bradycardic with rate of 48 bpm and regular rhythm. Lungs are clear with diminished bases. Edema in right arm and BLE is present with no pitting and has improved compared to last week. Coccyx is slightly redenned and Q2 turn is implemented. Comfort measures provided and call ight within reach.
[2021-06-20] VITALS (13 sets, daily range): BP systolic 90–202; BP diastolic 61–94; PULSE 44–60; TEMP 97.6–98.7
[2021-06-20 07:42] LABS: BASO % 0.6 % (0.0-2.0); EOS # 0.4 K/mm3 (0.0-0.7); EOS % 11.9 % (0-4.0); GRAN # 2.2 K/mm3 (1.4-6.5); HEMOGLOBIN 11.1 g/dl (13.5-18.0); LYMPH # 0.6 K/mm3 (1.2-3.4); LYMPH % 16.4 % (20.0-51.0); MEAN CELL VOLUME 95 fl (80.0-100.0); MEAN CORPUSCULAR HEMOGLOBIN 33 pg (27.0-31.0); MEAN CORPUSCULAR HGB CONC 35 g/dl (33.0-37.0); MEAN PLATELET VOLUME 10.3 fl (7.4-10.4); MONO # 0.3 K/mm3 (0.1-0.6); MONO % 8.8 % (1.7-9.3); PLATELET COUNT 144 K/mm3 (130-400); RED BLOOD COUNT 3.33 M/mm3 (4.20-5.60); REDCELL DISTRIBUTION WIDTH-CV 13.3 % (11.5-14.5)
[2021-06-20 07:47] LABS: HEMATOCRIT 31.6 % (42.0-52.0)
[2021-06-20 07:57] LABS: CALCIUM 8.3 mg/dL (8.4-10.2); CREATININE, serum 0.84 mg/dL (0.72-1.25); POTASSIUM 3.5 mmol/L (3.5-4.5)
--- NOTE | 2021-06-20 14:10 | NUR ---
Patient to have pacemaker placement today. SW contacted Olvin at [facility] [employer] and faxed clinical updates. Discharge Plan: [facility]
--- NOTE | 2021-06-20 14:29 | NUR ---
SEE MERGE FOR ALL MEDICATION ADMINISTRATION TIMES, INTRA AND POST SEDATION ASSESSMENTS
--- NOTE | 2021-06-20 15:50 | NUR ---
Patient to room 314 from the laboratory operations coordinator, daughter at the bedside. This nurse just came on shift and this nurse oriented the patient and daughter. Patient A&O, drowsy, but awake. Post op VS monitored. VSS. IV CDI. Left arm in a sling. Incision sites CDI, Ice on pacemaker site. Denies pain and discomfort. No further needs expressed. Call light within reach
--- NOTE | 2021-06-20 18:05 | NUR ---
Patient sitting up in bed, daughter assisting with feeds. VSS. A&Ox3. Denies pain and discomfort. Incision sites CDI, ice on left upper chest. No further needs expressed. Call light within reach. Bed alarm on
--- NOTE | 2021-06-20 19:45 | NUR ---
Assessment complete. Patient's daughter currently at bedside. Patient is alert and oriented with no complaints of pain. Left chest loop recorder removal and pacemaker insertion sites are soft and CDI. Left arm is positioned in sling. Potassium protocol is implemented and replacement is initiated. Comfort measures provided and call light within reach.
--- NOTE | 2021-06-21 00:15 | NUR ---
This RN assisted patient with urinal at this time; patient is uncircumsized and the foreskin appears to be retracted and very swollen. Patient states it is not painful when palpated but he does still feel the sensation. PINKY Christensen notified and assesses the patient; she consults urology and calls Dr. Higuera to discuss the issue. Awaiting Dr. Higuera's assessment and orders.
--- NOTE | 2021-06-21 00:32 | NUR ---
Bladder scan performed and 140 mls is the result. Patient is still able to void a small amount.
[2021-06-21 03:33] VITALS: BP 118/70; PULSE 63; TEMP 98.8
--- NOTE | 2021-06-21 07:17 | NUR ---
PT HAD ROUGH NIGHT PER REPORT. PT'S FORESKIN WAS DRAWN BACK, UROLOGY REPLACED, AND IS DOING FINE NOW. PT DENIES ANY PAIN.
--- NOTE | 2021-06-21 07:32 | NUR ---
PT'S RIGHT EYE IS SWOLLEN DUE TO GLASSES NOSE PIECE BEING DUG IN UNDER THE SKIN. THIS RN REMOVED THE GLASSES AND PLACED THEM OVER ON THE COUNTER TO PREVENT THE PATIENT FROM REPLACING THEM. PROVIDER NOTIFIED, THEY WILL COME TO LOOK AT THE INJURY AND ORDER INTERVENTIONS. NO FURTHER CONERNS AT THIS TIME.
[2021-06-21 07:36] LABS: BASO % 0.8 % (0.0-2.0); EOS # 0.4 K/mm3 (0.0-0.7); EOS % 7.9 % (0-4.0); GRAN # 3.4 K/mm3 (1.4-6.5); GRAN % 69.6 % (42.2-75.2); HEMOGLOBIN 11.4 g/dl (13.5-18.0); LYMPH # 0.7 K/mm3 (1.2-3.4); LYMPH % 14.2 % (20.0-51.0); MEAN CELL VOLUME 92 fl (80.0-100.0); MEAN CORPUSCULAR HEMOGLOBIN 32 pg (27.0-31.0); MEAN CORPUSCULAR HGB CONC 35 g/dl (33.0-37.0); MEAN PLATELET VOLUME 9.5 fl (7.4-10.4); MONO # 0.4 K/mm3 (0.1-0.6); MONO % 7.3 % (1.7-9.3); PLATELET COUNT 155 K/mm3 (130-400); RED BLOOD COUNT 3.54 M/mm3 (4.20-5.60)
[2021-06-21 07:42] VITALS: BP 140/73; PULSE 60; TEMP 98
[2021-06-21 07:44] LABS: HEMATOCRIT 32.7 % (42.0-52.0)
[2021-06-21 08:10] LABS: CALCIUM 8.5 mg/dL (8.4-10.2); CREATININE, serum 0.98 mg/dL (0.72-1.25); POTASSIUM 4.1 mmol/L (3.5-4.5)
--- NOTE | 2021-06-21 10:08 | NUR ---
PT CURRENTLY IS COMPLAINING OF PAIN TO THE RIGHT ARM SHOOTING PAIN FROM THE SHOULDER TO THE FINGER TIPS. HE ALSO STATES "I AM UNABLE TO GET ANY SLEEP AROUND HERE, SOMEONE IS COMING IN EVERY 45 MINUTES". HE IS FRUSTRATED THAT THERE IS NO COMMUNICATION BETWEEN PROVIDERS AND FEELS THOUGH NO ONE CARES ABOUT THE RESTRICTIONS IN PLACE. THIS RN IS DISCUSSING THE CARE PLAN WITH HIM, AND HE IS UNDERSTANDING OF THE WAY WE COMMUNICATE WITH EACH OTHER HIS CARE TEAM. HE HAS NO OTHER CONCERNS, AND THIS RN HAS NO OTHER CONCERNS EITHER. WILL CONTINUE TO MONITOR HIM.
[2021-06-21 12:26] VITALS: BP 133/77; PULSE 60; TEMP 97.8
--- NOTE | 2021-06-21 13:58 | NUR ---
Primary nurse was assisted with [phone] patient care by [employer] student Maria C Branch and [employer] instructor Eva Davidson MSN, RN
--- NOTE | 2021-06-21 16:00 | NUR ---
Area Safety Manager was contacted by Olvin at [facility] who advised they have a covid positive case on their rehab unit, however can still accept patient upon discharge. SW attempted to meet with patient but was unable as patient was having personal cares. SW contacted patient's daughter, Kavitha to provide this update. Kavitha will speak with patient about this and would like an update from Hospitalist. CHACORTA contacted PINKY Stacy with this request. Discharge Plan: [facility]
[2021-06-21 16:18] VITALS: BP 132/76; PULSE 59; TEMP 98.1
[2021-06-21 20:16] VITALS: BP 110/62; PULSE 60; TEMP 98.4
[2021-06-21 20:59] VITALS: BP 120/68; PULSE 59
[2021-06-22 00:37] VITALS: BP 107/57; PULSE 60; TEMP 98.6
[2021-06-22 04:55] VITALS: BP 107/63; PULSE 60; TEMP 98.1
--- NOTE | 2021-06-22 05:17 | NUR ---
Rested comfortably throughout night, no c/o at this time, orthostatic blood pressures positive, fall precautions in use, call membreno w/i reach.
[2021-06-22 08:43] LABS: CALCIUM 8.3 mg/dL (8.4-10.2); CREATININE, serum 1.14 mg/dL (0.72-1.25); POTASSIUM 3.7 mmol/L (3.5-4.5)
[2021-06-22 09:04] VITALS: BP 158/97; PULSE 66; TEMP 98.2
[2021-06-22] MEDS ORDERED: CEPHALEXIN500 M1 PO ×2 (09:38)
[2021-06-22] MEDS ORDERED: PROAMATINE10 MG PO ×2 (09:40)
[2021-06-22] MEDS ORDERED: MULTAQ400 MG PO (09:41)
[2021-06-22] MEDS ORDERED: ZOCOR 10MG10 MG PO (09:42)
[2021-06-22] MEDS ORDERED: ASPIRIN E.C. 8181 MG PO (09:42)
[2021-06-22] MEDS ORDERED: TYLENOL 325MG325 MG PO (09:43)
[2021-06-22] MEDS ORDERED: SINEMET 25/101 UDTAB PO ×2 (10:13)
[2021-06-22] MEDS ORDERED: CILOXAN .3% EY2.5 ML OU ×2 (10:15)
[2021-06-22] MEDS ORDERED: MIRALAX PA17 GM/Dose PO (10:15)
[2021-06-22] MEDS ORDERED: METAMUCIL3.4 GM/DOS PO (10:16)
[2021-06-22] MEDS ORDERED: FLORINEF ACETA0.1 MG PO ×2 (10:16)
[2021-06-22] MEDS ORDERED: PROBIOTIC ACID1 EAC3 PO (10:16)
[2021-06-22] MEDS ORDERED: PROSCAR 5MG5 MG PO (10:16)
[2021-06-22] MEDS ORDERED: GOOD SENSE400 MG/5 M PO (10:16)
[2021-06-22] MEDS ORDERED: ZOLOFT 25MG25 MG PO ×2 (10:18)
[2021-06-22 12:47] VITALS: BP 120/66; PULSE 60; TEMP 98
--- NOTE | 2021-06-22 12:50 | NUR ---
Patient ready for dc and transportation arranged for 1400. Patient, nursing staff and physician notifed. Attempt made to contact the patient's daughter but was unsuccessful. Discharge plan: [facility]
--- NOTE | 2021-06-22 14:02 | NUR ---
Primary nurse was assisted with [phone] patient care by [employer] student Maria C Branch and [employer] instructor Eva Davidson MSN, RN
--- NOTE | 2021-06-22 14:38 | NUR ---
Patient's daughter called upset that her father is being discharged. Upset that Dr. Guzman made an assessment last night and started her father on a medication that he "can't come off of". Daughter educated that the patient is to be discharged at 1400 for SNF stay at [facility]. Daughter had questions surrounding her fathers medications. Patients nurse notifed and will speak with the patient's daughter.
--- NOTE | 2021-06-22 16:09 | NUR ---
Patient discharged to [facility]. Patient was dressed by this RN and Jo. New dressing was applied to the patient's bottom. Central line was removed without difficulty by this RN and Francisco.
== END 2021-06-22 16:00 | DRG 242 ==
LOC: COL.ER 18:47 → ICU 21:38 → COL.ER 21:38 → MEDICAL 21:38 → ICU 06-11 15:30 → MEDICAL 06-13 16:44
PROVIDERS: Emergency Medicine; Internal Medicine; Physician Assistant; Student in an Organized Health Care Education/Training Program; ADMIT Internal Medicine
PROC: 0JH632Z Insertion of Monitoring Device into Chest Subcutaneous Tissue and Fascia, Percutaneous Approach (ICD-10-PCS; 2021-06-11)
PROC: 02HV33Z Insertion of Infusion Device into Superior Vena Cava, Percutaneous Approach (ICD-10-PCS; 2021-06-11)
PROC: 5A2204Z Restoration of Cardiac Rhythm, Single (ICD-10-PCS; 2021-06-11)
PROC: 0JH606Z Insertion of Pacemaker, Dual Chamber into Chest Subcutaneous Tissue and Fascia, Open Approach (ICD-10-PCS; principal; 2021-06-20)
PROC: 02HK0JZ Insertion of Pacemaker Lead into Right Ventricle, Open Approach (ICD-10-PCS; 2021-06-20)
PROC: 02H60JZ Insertion of Pacemaker Lead into Right Atrium, Open Approach (ICD-10-PCS; 2021-06-20)
DX: I48.0 Paroxysmal atrial fibrillation (principal); I50.31 Acute diastolic (congestive) heart failure; I82.511 Chronic embolism and thrombosis of right femoral vein; I82.531 Chronic embolism and thrombosis of right popliteal vein; E78.5 Hyperlipidemia, unspecified; G90.9 Disorder of the autonomic nervous system, unspecified; I95.1 Orthostatic hypotension; D35.2 Benign neoplasm of pituitary gland; I08.3 Combined rheumatic disorders of mitral, aortic and tricuspid valves; R35.0 Frequency of micturition; N40.1 Benign prostatic hyperplasia with lower urinary tract symptoms; I49.5 Sick sinus syndrome; G20 Parkinson's disease; I11.0 Hypertensive heart disease with heart failure; K59.09 Other constipation; R47.81 Slurred speech; N47.2 Paraphimosis; H10.9 Unspecified conjunctivitis; Z87.891 Personal history of nicotine dependence; Z20.822 Contact with and (suspected) exposure to COVID-19
CPT/HCPCS: 99223-AI; 99232-AI; 99233-AI; 99239; C1764; C1769; C1785; C1894; C1898; J0360; J0690; J1644; J1940; J2250; J3010; J3480; J7030

== ENCOUNTER 2021-06-24 | Inpatient (IN) | payer MEDICARE ==
[~2021-06-24] VITALS: Ht 170.2 cm; Wt 74.2 kg
[~2021-06-24] MED LIST changes: +ALEVE 220MG220 MG PO; +ASPIRIN 32325 MG/TAB PO; +ASPIRIN E.C. 8181 MG PO; +CEPHALEXIN500 M1 PO; +CILOXAN .3% EY2.5 ML OU; +FLORINEF ACETA0.1 MG PO; +GOOD SENSE400 MG/5 M PO; +METAMUCIL3.4 GM/DOS PO; +MIRALAX PA17 GM/Dose PO; +MULTAQ400 MG PO; +PROAMATINE10 MG PO; +PROBIOTIC ACID1 EAC3 PO; +SINEMET 25/101 UDTAB PO; +ZOCOR 10MG10 MG PO; +ZOLOFT 25MG25 MG PO
[2021-06-24 00:50] LABS: BASO % 0.5 % (0.0-2.0); EOS # 0.1 K/mm3 (0.0-0.7); EOS % 1.4 % (0-4.0); GRAN % 79.2 % (42.2-75.2); HEMOGLOBIN 11.6 g/dl (13.5-18.0); LYMPH # 0.7 K/mm3 (1.2-3.4); LYMPH % 10.5 % (20.0-51.0); MEAN CELL VOLUME 94 fl (80.0-100.0); MEAN CORPUSCULAR HEMOGLOBIN 33 pg (27.0-31.0); MEAN CORPUSCULAR HGB CONC 35 g/dl (33.0-37.0); MEAN PLATELET VOLUME 9.3 fl (7.4-10.4); MONO # 0.5 K/mm3 (0.1-0.6); MONO % 8.1 % (1.7-9.3); PLATELET COUNT 189 K/mm3 (130-400); RED BLOOD COUNT 3.53 M/mm3 (4.20-5.60); REDCELL DISTRIBUTION WIDTH-CV 13.3 % (11.5-14.5)
[2021-06-24 00:51] LABS: HEMATOCRIT 33.1 % (42.0-52.0)
[2021-06-24 01:08] LABS: ALANINE AMINOTRANSFERASE 44 U/L (0-55); ALBUMIN 2.5 gm/dL (3.4-4.8); ALKALINE PHOSPHATASE 73 U/L (0-750); ANION GAP 10 mmol/L (7-16); AST,SGOT 68 U/L (5-34); BILIRUBIN,TOTAL 0.9 mg/dL (0.2-1.2); BLOOD UREA NITROGEN 30 mg/dL (8-26); CALCIUM 8.6 mg/dL (8.4-10.2); CARBON DIOXIDE 26 mmol/L (23-31); CHLORIDE 97 mmol/L (98-107); CREATININE, serum 1.45 mg/dL (0.72-1.25); GLUCOSE 126 mg/dL (70-99); POTASSIUM 3.7 mmol/L (3.5-4.5); SODIUM 133 mmol/L (136-145); TOTAL PROTEIN 5.3 gm/dL (6.2-8.1)
[2021-06-24 01:18] LABS: TROPONIN-I < 0.010 ng/mL (0.00-0.033)
[2021-06-24 13:07] VITALS: BP 119/61; PULSE 63; TEMP 97.6
--- NOTE | 2021-06-24 14:08 | NUR ---
Brittney met with the pt(armando cline) who stated their preference to return home once medically stable. The pt came from rehab. The pt lives with his daughter, matt [phone]. The pt pcp is Dr. ortega and gets his medications from [facility]. Sw to await further recommendations and follow up as needed.
[2021-06-24 16:28] VITALS: BP 91/52; PULSE 59; TEMP 98.3
[2021-06-24 22:02] VITALS: BP 94/56; PULSE 65; TEMP 97.4
--- NOTE | 2021-06-24 22:34 | NUR ---
Patient assessed. Denies pain and discomfort at this time. Uses urinal. Used bedpan for BM at beginning of shift, and bed change provided. Denies SOB and dyspnea. Patient remains on bedrest due to syncope, and explained to patient, who voiced understanding. Patient voices no questions, needs, or concerns at this time. Resting in bed with call light within reach.
[2021-06-25 00:23] VITALS: BP 94/55; PULSE 60; TEMP 98.6
[2021-06-25 05:35] VITALS: BP 102/55; PULSE 60; TEMP 97.9
--- NOTE | 2021-06-25 06:20 | NUR ---
Patient has been incontinent of bowel and bladder this shift. Loose stools. Pericare provided. Denies having pain and discomfort. Voices no questions, needs, or concerns at this time. Resting in bed with call light within reach.
[2021-06-25 07:31] VITALS: BP 124/65; PULSE 63; TEMP 98.1
[2021-06-25 09:05] LABS: BASO % 0.8 % (0.0-2.0); EOS # 0.4 K/mm3 (0.0-0.7); EOS % 8.9 % (0-4.0); GRAN # 2.4 K/mm3 (1.4-6.5); GRAN % 61.5 % (42.2-75.2); LYMPH # 0.7 K/mm3 (1.2-3.4); LYMPH % 18.8 % (20.0-51.0); MEAN CELL VOLUME 94 fl (80.0-100.0); MEAN CORPUSCULAR HEMOGLOBIN 33 pg (27.0-31.0); MEAN CORPUSCULAR HGB CONC 35 g/dl (33.0-37.0); MEAN PLATELET VOLUME 9.6 fl (7.4-10.4); MONO # 0.4 K/mm3 (0.1-0.6); MONO % 9.7 % (1.7-9.3); PLATELET COUNT 150 K/mm3 (130-400); RED BLOOD COUNT 3.03 M/mm3 (4.20-5.60); REDCELL DISTRIBUTION WIDTH-CV 13.2 % (11.5-14.5)
[2021-06-25 09:08] LABS: HEMATOCRIT 28.6 % (42.0-52.0)
[2021-06-25 09:21] LABS: CALCIUM 7.8 mg/dL (8.4-10.2); CREATININE, serum 1.17 mg/dL (0.72-1.25); POTASSIUM 3.7 mmol/L (3.5-4.5)
--- NOTE | 2021-06-25 09:57 | NUR ---
Pt awake upon entry to room, talkative. No C/O pain this morning. Shift assessment complete, left Pt in bed, lowest position, call light in reach.
--- NOTE | 2021-06-25 10:44 | NUR ---
Per Olvin at [facility], patient will not need a new authorization. Clinical updates faxed.
--- NOTE | 2021-06-25 12:32 | NUR ---
Initial visit; Patient thanked Remelt Worker for looking in on him, offering prayer and keeping him in Remelt Worker's prayers. Remelt Worker will follow up with this patient.
--- NOTE | 2021-06-25 13:13 | NUR ---
flare worker contacted patient's daughter Elina, "Kavitha" to verify where the patint will dc to. She verbalizes that she wants the patient to go back to [facility]. Patient verbalizes that he want's to go back to [facility]. Clinical updates faxed to Olvin.
[2021-06-25 15:58] VITALS: BP 130/67; PULSE 60; TEMP 98.4
[2021-06-25 20:00] VITALS: BP 102/64; PULSE 72; TEMP 98.4
[2021-06-25 20:10] VITALS: BP 102/64; PULSE 72; TEMP 98.7
--- NOTE | 2021-06-25 21:30 | NUR ---
Patient is lying in bed watching TV. Alert and oriented, reports no pain, nausea or vomiting. Tele in place, paced, TEDs removed and placed again. Edema present in the right side extremities. Assessment completed, no further needs at this time, call light within reach.
[2021-06-26] VITALS (7 sets, daily range): BP systolic 101–142; BP diastolic 57–78; PULSE 60–80; TEMP 97.9–98.5
[2021-06-26 08:00] LABS: BASO # 0.1 K/mm3 (0.0-0.2); BASO % 1.4 % (0.0-2.0); EOS # 0.4 K/mm3 (0.0-0.7); EOS % 9.9 % (0-4.0); GRAN # 2.5 K/mm3 (1.4-6.5); GRAN % 58.7 % (42.2-75.2); HEMOGLOBIN 10.8 g/dl (13.5-18.0); LYMPH # 0.9 K/mm3 (1.2-3.4); LYMPH % 21.6 % (20.0-51.0); MEAN CELL VOLUME 93 fl (80.0-100.0); MEAN CORPUSCULAR HEMOGLOBIN 33 pg (27.0-31.0); MEAN CORPUSCULAR HGB CONC 36 g/dl (33.0-37.0); MEAN PLATELET VOLUME 9.6 fl (7.4-10.4); MONO # 0.4 K/mm3 (0.1-0.6); MONO % 8.2 % (1.7-9.3); PLATELET COUNT 184 K/mm3 (130-400); RED BLOOD COUNT 3.24 M/mm3 (4.20-5.60); REDCELL DISTRIBUTION WIDTH-CV 13.2 % (11.5-14.5)
[2021-06-26 08:07] LABS: HEMATOCRIT 30.1 % (42.0-52.0)
[2021-06-26 08:18] LABS: CALCIUM 8.4 mg/dL (8.4-10.2); CREATININE, serum 1.05 mg/dL (0.72-1.25); POTASSIUM 3.5 mmol/L (3.5-4.5)
--- NOTE | 2021-06-26 08:28 | NUR ---
REPORT RECEIVED FROM MANOJ FELIPE. PT AWAKE//ALERT IN BED WATCHING TV. DENIES PAIN. NO NEEDS AT THIS TIME. CALL WILKINS IN REACH
--- NOTE | 2021-06-26 09:33 | NUR ---
Clinical updates faxed to [facility]
[2021-06-26] MEDS ORDERED: MULTAQ400 MG PO (10:36)
[2021-06-26] MEDS ORDERED: FLORINEF ACETA0.1 MG PO (10:38)
--- NOTE | 2021-06-26 10:55 | NUR ---
housekeeping laundry worker met with patient post rounding and collaboration with physicians on dc plan . Physician verbalized concerns of [facility] accepting the patient back SNF due to syncopal episodes during movement and need for LTC. [facility] feels as if a wheelchair transport is acceptable. Donnie with [facility] contacted regarding the doctors concerns about the patient returning back to SNF due to syncopal episodes with movement and if therapy would be of benefit. Donnie advised that the best option is for the patient to return back to [facility] then transition to LTC. Patient notified of discharge back to [facility] today. Patient's daughter Elina contacted and educated about the need for LTC due to the high probability of the patient remaining bed bound. Notified the patients daughter that the medication changes showed little to no imporovement for her father's ortho BP. Educated Elina that [facility] is accepting the patient back skilled at this moment, but the need to transition to LTC is recommended. Elina verbalized her understanding of this. Donnie with [facility] notified that the patient is not on oxygen and that a wheelchair will be needed for transportation. Transportation time set up for 1230. Covid swab requested to [facility] to be put. Nursing staff notified. Physicians, [facility], patient and patients daughter are in agreement with dc plan. in Dc orders faxed to [facility].
[2021-06-26] MEDS ORDERED: SODIUM CHLORIDE1 GM PO ×2 (12:04)
--- NOTE | 2021-06-26 14:26 | NUR ---
Patient had an orthostatic episode when [facility] showed up for transfer. Ariadna TEIXEIRA at [facility] contacted Rachael stating that they are unable to accept this patient back until he is more stable. Notified [facility] and we are collaborating on a plan for the patient.
--- NOTE | 2021-06-26 18:28 | NUR ---
PT HAD EPISODE OF SYNCOPE/VERTIGO WITH HYPOTENSION THAT PREVENTED HIM FROM BEING D/C'D TO [facility]. PT STAYING OVERNIGHT FOR OBSERVATION AND OTHER CONSULTS TOMORROW. PT RESTING IN BED. DAUGHTER IN ROOM. NO NEEEDS AT THIS TIME. CALL WILKINS IN REACH
--- NOTE | 2021-06-26 19:50 | NUR ---
Patient is resting in bed with family member, alert and oriented x 4, VSS, no pain, nausea or vomiting, tele in place, paced, TEDs in place, skin tear in right buttock, covered with aquacell. Assessment completed, no further needs at this time, call light within reach.
[2021-06-27 00:25] VITALS: BP 127/74; PULSE 60; TEMP 97.4
[2021-06-27 04:43] VITALS: BP 129/74; PULSE 60; TEMP 97.6
--- NOTE | 2021-06-27 06:19 | NUR ---
Patient had an incontinent accident. Stool is loose. Linens changed. Skin tear in his right buttock. Aquacell completely wet. Aquacell replaced.
--- NOTE | 2021-06-27 07:13 | NUR ---
RECEIVED REPORT FROM MANOJ FEILPE. PT AWAKE/ALERT IN BED. LAB DRAWING BLOOD. PT DENIES PAIN. HAS NO NEEDS AT THIS TIME. CALL WILKINS IN REACH
[2021-06-27 07:15] LABS: BASO # 0.1 K/mm3 (0.0-0.2); BASO % 1.3 % (0.0-2.0); EOS # 0.4 K/mm3 (0.0-0.7); EOS % 9.5 % (0-4.0); GRAN # 2.5 K/mm3 (1.4-6.5); GRAN % 62.6 % (42.2-75.2); HEMATOCRIT 33.6 % (42.0-52.0); LYMPH # 0.7 K/mm3 (1.2-3.4); LYMPH % 18.3 % (20.0-51.0); MEAN CELL VOLUME 92 fl (80.0-100.0); MEAN CORPUSCULAR HEMOGLOBIN 33 pg (27.0-31.0); MEAN CORPUSCULAR HGB CONC 36 g/dl (33.0-37.0); MEAN PLATELET VOLUME 9.1 fl (7.4-10.4); MONO # 0.3 K/mm3 (0.1-0.6); PLATELET COUNT 197 K/mm3 (130-400); RED BLOOD COUNT 3.65 M/mm3 (4.20-5.60); REDCELL DISTRIBUTION WIDTH-CV 13.2 % (11.5-14.5)
--- NOTE | 2021-06-27 07:17 | NUR ---
Patient had a good night, all needs met. Shift report given to day nurse.
[2021-06-27 07:21] VITALS: BP 160/82; PULSE 60; TEMP 98.4
[2021-06-27 07:31] LABS: CALCIUM 8.5 mg/dL (8.4-10.2); CREATININE, serum 1.07 mg/dL (0.72-1.25); POTASSIUM 3.6 mmol/L (3.5-4.5)
--- NOTE | 2021-06-27 07:31 | NUR ---
MD AWARE OF PT INCREASED BP.
--- NOTE | 2021-06-27 08:35 | NUR ---
0830 Assessment completed. Patient found resting in bed. Telemetry hooked up and working. No complaints of pain or discomfort from patient.
--- NOTE | 2021-06-27 09:06 | NUR ---
0830 assessment complete. Patient found resting in bed. Telemetry on. No complaints of pain or discomfort from patient.
--- NOTE | 2021-06-27 09:46 | NUR ---
I met with Carlos at bedside today to talk about his situation and what his goals are. His goal is to try the new medication--which will arrive tomorrow--and see if it is able to help with his dizziness. he is willing to work with therapy in the bed, to strengthen his upper body strength. 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 He feels the compression stockings are helping. He has thoughts of modifications that may need to be made for his living situation that will help him move better with the abilities that he has. He is trying to keep his spirits up but reports that he does feel depressed sometimes. His daughter Elina has been helping him. They may be moving back to [place] to be closer to her work or may be here for a while. That will depend on how things go with him. First goal is to try the new medication and see it will improve some of his challenges. I also called his daughter, Elina, to talk with her about what palliative care can offer which she seemed to appreciate just having some support as they proceed with her father's care.
--- NOTE | 2021-06-27 09:49 | NUR ---
0800 assessment completed. Patient found resting in bed. Telemetry on. Aquacel bandage over right buttocks. Dressing over pacemaker incision on left chest. Dressing to subclavian right CDI. Right arm non-pitting edema, elevated right arm on pillow. CMS checks within normal limits. Right lower leg 1+ edema, no redness, no warmth noted to calf. No complaints of pain from patient. Whitley, student nurse
--- NOTE | 2021-06-27 10:34 | NUR ---
FOR FALL PREVENTION PROTOCOL: PT IS ON BEDREST. NON-AMBULATORY
--- NOTE | 2021-06-27 10:45 | NUR ---
Clinical updates faxed to [facility]. Physicians are wanting to see if a medication that is set to arrive to the facility on would be of benefit to the patient. I followed up with MANOJ Briceño post palliative consult. Patient is not wanting to pursue hospice at this moment. D/C plan remains: [facility] SNF once medically stable.
[2021-06-27 10:48] VITALS: BP 113/63; PULSE 60; TEMP 97.8
--- NOTE | 2021-06-27 11:38 | NUR ---
First visit from the product safety specialist. Resident Services Supervisor prayed with patient. No needs right now.
[2021-06-27 17:35] VITALS: BP 117/61; PULSE 59; TEMP 97.9
--- NOTE | 2021-06-27 18:27 | NUR ---
PT HAD UNEVENTFUL DAY. DENIES PAIN. NO NEEDS AT THIS TIME. CALL WILKINS IN REACH
[2021-06-27 20:06] VITALS: BP 143/73; PULSE 59; TEMP 97.9
--- NOTE | 2021-06-27 20:18 | NUR ---
Patient is resting in bed, alert and oriented x 4, VSS, denies pain, nausea or vomiting, tele in place, paced. Teds in place. He likes to have the urinal placed all the time. 100 urine output. Assessment completed, meds provided, no further needs at this time, call ligth within reach.
[2021-06-28 00:33] VITALS: BP 114/66; PULSE 56; TEMP 97.9
[2021-06-28 04:08] VITALS: BP 102/57; PULSE 60; TEMP 98
--- NOTE | 2021-06-28 06:43 | NUR ---
Patient has had a calm night. ANTHONY Oliver reported he had a white/clear yellow stool with mucous. Reported to hospitalist. Patient did not eat his hamburger for dinner the night before. Shift report will be given to day shift nurse.
[2021-06-28 07:11] LABS: CALCIUM 8.1 mg/dL (8.4-10.2); CREATININE, serum 1.09 mg/dL (0.72-1.25); POTASSIUM 3.6 mmol/L (3.5-4.5)
[2021-06-28 08:15] LABS: BASO # 0.1 K/mm3 (0.0-0.2); BASO % 1.4 % (0.0-2.0); EOS # 0.4 K/mm3 (0.0-0.7); GRAN # 2.7 K/mm3 (1.4-6.5); GRAN % 63.6 % (42.2-75.2); HEMOGLOBIN 10.8 g/dl (13.5-18.0); LYMPH # 0.8 K/mm3 (1.2-3.4); LYMPH % 18.1 % (20.0-51.0); MEAN CELL VOLUME 93 fl (80.0-100.0); MEAN CORPUSCULAR HEMOGLOBIN 33 pg (27.0-31.0); MEAN CORPUSCULAR HGB CONC 35 g/dl (33.0-37.0); MEAN PLATELET VOLUME 10.1 fl (7.4-10.4); MONO # 0.3 K/mm3 (0.1-0.6); MONO % 7.4 % (1.7-9.3); PLATELET COUNT 194 K/mm3 (130-400); RED BLOOD COUNT 3.29 M/mm3 (4.20-5.60); REDCELL DISTRIBUTION WIDTH-CV 13.2 % (11.5-14.5)
[2021-06-28 08:25] LABS: HEMATOCRIT 30.5 % (42.0-52.0)
[2021-06-28 08:46] VITALS: BP 147/75; PULSE 60; TEMP 98.3
--- NOTE | 2021-06-28 11:38 | NUR ---
PT ALERT AND ORIENTED. PT REFUSING OCCUPATIONAL THERAPY STATING, "I'M SUPPOSED TO BE ON BEDREST" PT HAS DIMINISHED LUNG SOUNDS IN ALL LOBES. POSTERIOR TIBIAL PULSE 1+, CAP REFILL <3S. DORSALIS PEDIS AND RADIAL PUSLES 2+ BILATERALLY. PT FAMILY COACH SLIGHLTY UNEQUAL WITH RIGHT WEAKER THAN LEFT. PT HAS ACTIVE BOWEL SOUNDS. PT URINAL IN BED WITH PT PER PT REQUEST. PT HAS BILATERAL UPPER EXTREMITY EDEMA, TAUT SKIN, 1-2+ PITTING. PT HAS BROOKE HOSE ON BILATERAL LOWER EXTREMITIES. NO OTHER NEEDS EXPRESSED AT THIS TIME.
[2021-06-28 11:49] VITALS: BP 123/53; PULSE 59; TEMP 98.5
--- NOTE | 2021-06-28 12:46 | NUR ---
CHACORTA faxed updates to Olvin at [employer].
[2021-06-28 16:19] VITALS: BP 103/62; PULSE 60; TEMP 97.9
--- NOTE | 2021-06-28 16:57 | NUR ---
PT ROLLED, CLEANED WITH PERSONAL WIPES AND PAD REPLACED ON SKIN TEAR OVER LEFT BUTTOCK.
--- NOTE | 2021-06-28 17:02 | NUR ---
PINKY HOLM NOTIFIED OF ORTHOSTATIC PRESSURES. VERIFIED WITH MIHAI CHEN TO GET SUPINE AND SITTING PRESSURES PER DR. THAYER'S PROGRESS NOTES AND SUGGESTION. SUPINE BLOOD PRESSURE 103/62; DANGLING, SITTING PRESSURE 88/46. NOTIFIED PINKY HOLM OF CLEAR LIQUID, MUCUS STOOL.
--- NOTE | 2021-06-28 20:40 | NUR ---
Patient is resting in bed, alert and oriented x 4, stable, reports no pain, nausea or vomiting. Tele and TEDS in place. Assessment completed, medications provided, assisted with bedpan and cleaning. No further needs at this time. Call light within reach.
[2021-06-29] VITALS (11 sets, daily range): BP systolic 91–136; BP diastolic 43–69; PULSE 58–60; TEMP 97.9–99.2
--- NOTE | 2021-06-29 06:51 | NUR ---
Patient has had a calm night. All needs met. Shift report given to day RN
[2021-06-29 07:04] LABS: BASO # 0.1 K/mm3 (0.0-0.2); BASO % 1.4 % (0.0-2.0); EOS # 0.3 K/mm3 (0.0-0.7); EOS % 9.3 % (0-4.0); GRAN # 2.2 K/mm3 (1.4-6.5); GRAN % 62.2 % (42.2-75.2); LYMPH # 0.7 K/mm3 (1.2-3.4); LYMPH % 20.6 % (20.0-51.0); MEAN CELL VOLUME 92 fl (80.0-100.0); MEAN CORPUSCULAR HGB CONC 36 g/dl (33.0-37.0); MEAN PLATELET VOLUME 9.4 fl (7.4-10.4); MONO # 0.2 K/mm3 (0.1-0.6); MONO % 6.5 % (1.7-9.3); PLATELET COUNT 184 K/mm3 (130-400); RED BLOOD COUNT 3.03 M/mm3 (4.20-5.60); REDCELL DISTRIBUTION WIDTH-CV 13.1 % (11.5-14.5)
[2021-06-29 07:07] LABS: HEMATOCRIT 27.8 % (42.0-52.0); HEMOGLOBIN 9.9 g/dl (13.5-18.0); MEAN CORPUSCULAR HEMOGLOBIN 33 pg (27.0-31.0)
[2021-06-29 07:17] LABS: CALCIUM 8.3 mg/dL (8.4-10.2); CREATININE, serum 1.01 mg/dL (0.72-1.25); MAGNESIUM 2.2 mg/dL (1.6-2.6); POTASSIUM 3.2 mmol/L (3.5-4.5)
--- NOTE | 2021-06-29 08:00 | NUR ---
PT ALERT AND ORIENTED. PT HAD DISTENDED ABDOMEN, SOFT TO TOUCH. ACTIVE BOWEL SOUNDS AUSCULTATED. PT HAD EDEMA IN BILATERAL UPPER AND LOWER EXTREMITIES. PT DENIES PAIN AT THIS TIME. PT HAD CLEAR, MUCUS LIKE STOOL. PT CLEANED WITH PERSONAL WIPES, AQUAFORM PAD REPLACED OVER RIGHT BUTTOCK SKIN TEAR. PILLOW PLACED UNDER PT LEFT SIDE TO ALLEVIATE PRESSURE. NO OTHER NEEDS AT THIS TIME.
--- NOTE | 2021-06-29 09:36 | NUR ---
I met with patient today to see how he felt he was doing. he reports he did start the new medication yesterday and thinks that he is able to move more easily today but then adds--it probably isn't as much as those therapists want me to do. I get scared when they try to sit me up and do things I am not ready to do yet. 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 He reports that people just need to be patient with him--I reminded him that he will also have to cautiously try more things. His goal is still to try to get stronger and return to his home environment if at all possible.
--- NOTE | 2021-06-29 10:43 | NUR ---
NOTIFIED PINKY HOLM OF ORTHOSTATIC 0800 BLOOD PRESSURES. SUPINE 136/44; SITTING 91/62
--- NOTE | 2021-06-29 10:44 | NUR ---
NOTIFIED DR. MATTSON OF PT [facility], LIQUID STOOL. RECEIVED VERBAL INSTRUCTIONS TO HOLD MIRALAX AND METAMUCIL UNTIL AFTER SUPPOSITORY.
--- NOTE | 2021-06-29 11:22 | NUR ---
Clinical updates faxed to Olvin at [facility]. Contact to Olvin made that the patient in on his 4th dose of the new medication and that he is going to have to start working with therapy to see if it is improving his ortho BP. Informed Olvin that the patient will be here through the weekend. Patient notified.
--- NOTE | 2021-06-29 12:53 | NUR ---
THIS RN NOTED THAT 1200 BLOOD PRESSURE WAS LOW, RECHECKED AT THIS TIME 95/51 ON RIGHT ARM PER DYNAMAP. RECHECKED RIGHT ARM MANUALLY 98/58. RECHECKED LEFT ARM DYNAMAP 99/53. PINKY HOLM NOTIFIED OF LOW BLOOD PRESSURES AND PT NOT HAVING BOWEL MOVEMENT AFTER SUPPOSITORY AND INQUIRY ABOUT METAMUCIL AND MIRALAX MEDICATIONS. INSTRUCTED TO CONTINUE TO MONITOR AT THIS TIME.
--- NOTE | 2021-06-29 13:00 | NUR ---
PINKY HOLM UPDATED ON 1200 ORTHOSTATIC BLOOD PRESSURES. SUPINE 97/53; SITTING 91/73.
--- NOTE | 2021-06-29 13:53 | NUR ---
SWELLING NOTED OVER FORESKIN. PT AWARE, STATES "I HAD A DOCTOR LOOK IT OVER A WEEK AGO AND HE SAID IT WAS FINE." WILL PASS ON TO PULLING MACHINE OPERATOR.
--- NOTE | 2021-06-29 14:27 | NUR ---
PT ATTEMPT TO HAVE BOWEL MOVEMENT PRIOR TO ENEMA, UNSUCCESSFUL. LIQUID, MUCUS STOOL NOTED WITH FLECKS OF FECAL MATTER NOTED. ENEMA ADMINISTERED PER ORDERS.
--- NOTE | 2021-06-29 15:23 | NUR ---
NOTIFIED PINKY HOLM OF UNSUCCESSFUL ENEMA. REPORT FROM SET DESIGNER WAS ALL CLEAR LIQUID RETURNED FROM BOWELS.
--- NOTE | 2021-06-29 15:51 | NUR ---
RECEIVED VERBAL INSTRUCTION TO CONTINUE TO MONITOR FOR BOWEL MOVEMENT.
--- NOTE | 2021-06-29 16:57 | NUR ---
PT CONTINUES TO HAVE MUCUS-LIKE BOWEL MOVEMENTS. THIS MOST RECENT OCCURRENCE IS TRANSLUCENT, WHITE.
--- NOTE | 2021-06-29 17:57 | NUR ---
Pt continuing on plan of care. Pt able to express needs. Pt still not had adequate bowel movement. Provider has been made aware, to continue to monitor. Pt orthostatics monitored this shift. Pt continuing on medication regime.
--- NOTE | 2021-06-29 20:34 | NUR ---
ALERT AND OX3. DENIES SOA, CHEST PAIN OR DIZZY. DSG TO RT UPPER CHEST C/D/I. PACED ON TELE. URINAL PLACED BETWEEN LEGS HE REQ FOR URINATION. PM MEDS GIVEN. DAUGHTER AT BEDSIDE, STATES HIS FINSTERIDE HAD BEEN DC BY UROLOGY SO REFUSED DOSE. PT REPORTS 3 BM SINCE SUPP/ENEMA. TEDS FOR VTE. CALL LIGHT WI REACH.
[2021-06-30 00:20] VITALS: BP 107/57; PULSE 59; TEMP 98
[2021-06-30 04:39] VITALS: BP 121/65; PULSE 58; TEMP 98
--- NOTE | 2021-06-30 05:28 | NUR ---
RESTED THROUGH THE NIGHT WIHTOUT INCIDENT. NEEDS ARE MET.
[2021-06-30 07:09] LABS: BASO % 0.7 % (0.0-2.0); EOS # 0.4 K/mm3 (0.0-0.7); EOS % 8.7 % (0-4.0); GRAN # 2.8 K/mm3 (1.4-6.5); LYMPH # 0.7 K/mm3 (1.2-3.4); LYMPH % 16.4 % (20.0-51.0); MEAN CELL VOLUME 95 fl (80.0-100.0); MEAN CORPUSCULAR HGB CONC 35 g/dl (33.0-37.0); MEAN PLATELET VOLUME 9.2 fl (7.4-10.4); MONO # 0.2 K/mm3 (0.1-0.6); PLATELET COUNT 177 K/mm3 (130-400); RED BLOOD COUNT 2.93 M/mm3 (4.20-5.60); REDCELL DISTRIBUTION WIDTH-CV 13.7 % (11.5-14.5)
[2021-06-30 07:17] LABS: HEMATOCRIT 27.9 % (42.0-52.0); HEMOGLOBIN 9.7 g/dl (13.5-18.0); MEAN CORPUSCULAR HEMOGLOBIN 33 pg (27.0-31.0)
[2021-06-30 07:23] LABS: CREATININE, serum 1.11 mg/dL (0.72-1.25); POTASSIUM 3.6 mmol/L (3.5-4.5)
[2021-06-30 07:43] VITALS: BP 110/58; PULSE 6; TEMP 98.2
[2021-06-30 11:24] VITALS: BP 116/53; PULSE 60; TEMP 98.3
--- NOTE | 2021-06-30 15:17 | NUR ---
Report from MANOJ Wang
--- NOTE | 2021-06-30 15:19 | NUR ---
Patient doing well throughout the day, Bed bath provided. Denies needs at this time. Reported off to Amber ARANDA.
[2021-06-30 15:21] VITALS: BP 124/66; PULSE 62; TEMP 98.5
--- NOTE | 2021-06-30 17:50 | NUR ---
Patient sitting up in bed watching TV. A&Ox3. VSS. IV CDI. Denies pain and discomfort. No further needs expressed. Call light within reach
--- NOTE | 2021-06-30 20:30 | NUR ---
ALERT ANDO X4. DENIES SOA, CHEST PAIN. STATES LIGHT HEADED WHEN STANDING TODAY. PM MEDS GIVEN. DENIES PAIN. INSIST ON LEAVING URINAL BETWEEN LEGS. REPORTS 1 BM TODAY. POC DISCUSSED. CALL LIGHT WI REACH. NEEDS MET.
[2021-06-30 20:31] VITALS: BP 117/57; PULSE 63; TEMP 99.2
[2021-07-01 00:04] VITALS: BP 114/67; PULSE 61; TEMP 98.5
[2021-07-01 05:14] VITALS: BP 127/70; PULSE 60; TEMP 97.8
[2021-07-01 07:02] LABS: BASO % 1.1 % (0.0-2.0); EOS # 0.4 K/mm3 (0.0-0.7); EOS % 11.9 % (0-4.0); GRAN # 2.3 K/mm3 (1.4-6.5); GRAN % 65.7 % (42.2-75.2); LYMPH # 0.6 K/mm3 (1.2-3.4); LYMPH % 15.9 % (20.0-51.0); MEAN CELL VOLUME 95 fl (80.0-100.0); MEAN CORPUSCULAR HGB CONC 34 g/dl (33.0-37.0); MEAN PLATELET VOLUME 9.6 fl (7.4-10.4); MONO # 0.2 K/mm3 (0.1-0.6); MONO % 5.1 % (1.7-9.3); PLATELET COUNT 193 K/mm3 (130-400); RED BLOOD COUNT 2.95 M/mm3 (4.20-5.60); REDCELL DISTRIBUTION WIDTH-CV 13.8 % (11.5-14.5)
[2021-07-01 07:04] LABS: HEMATOCRIT 27.9 % (42.0-52.0); HEMOGLOBIN 9.6 g/dl (13.5-18.0); MEAN CORPUSCULAR HEMOGLOBIN 33 pg (27.0-31.0)
[2021-07-01 07:13] LABS: CALCIUM 8.2 mg/dL (8.4-10.2); CREATININE, serum 1.03 mg/dL (0.72-1.25); POTASSIUM 3.4 mmol/L (3.5-4.5)
[2021-07-01 07:50] VITALS: BP 123/65; PULSE 63; TEMP 98.5
--- NOTE | 2021-07-01 08:00 | NUR ---
Patient laying in bed, A&Ox3. VSS. IV CDI. Denies pain and discomfort. Penis in urinal. Patient does not want to remove the urinal. Incision sites left upper chest CDI. Patient does not want to remove the dressing. No further needs expressed from the patient. Call light within reach.
[2021-07-01 12:56] VITALS: BP 127/66; PULSE 63; TEMP 98.2
[2021-07-01 15:23] LABS: IRON,SERUM 51 ug/dL (35-150)
[2021-07-01 15:32] LABS: TOTAL IRON BINDING CAPACITY 222 ug/dL (261-462)
[2021-07-01 15:41] VITALS: BP 109/63; PULSE 60; TEMP 97.7
--- NOTE | 2021-07-01 17:53 | NUR ---
Patient has had an uneventful day, worked with PT and was able to sit on the edge of bed with less assistance. Was not able to stand. A&Ox3. VSS. IV CDI. Denies pain and discomfort. Call light within reach.
[2021-07-01 20:22] VITALS: BP 115/57; PULSE 61; TEMP 98.7
[2021-07-02] VITALS (7 sets, daily range): BP systolic 100–127; BP diastolic 49–70; PULSE 59–66; TEMP 97.2–98.4
[2021-07-02 07:34] LABS: BASO % 0.8 % (0.0-2.0); EOS # 0.4 K/mm3 (0.0-0.7); EOS % 10.4 % (0-4.0); GRAN # 2.6 K/mm3 (1.4-6.5); GRAN % 68.3 % (42.2-75.2); LYMPH # 0.6 K/mm3 (1.2-3.4); LYMPH % 14.9 % (20.0-51.0); MEAN CELL VOLUME 98 fl (80.0-100.0); MEAN CORPUSCULAR HGB CONC 34 g/dl (33.0-37.0); MEAN PLATELET VOLUME 9.7 fl (7.4-10.4); MONO # 0.2 K/mm3 (0.1-0.6); MONO % 5.3 % (1.7-9.3); PLATELET COUNT 175 K/mm3 (130-400); RED BLOOD COUNT 2.81 M/mm3 (4.20-5.60); REDCELL DISTRIBUTION WIDTH-CV 13.9 % (11.5-14.5)
[2021-07-02 07:37] LABS: CALCIUM 8.4 mg/dL (8.4-10.2); CREATININE, serum 1.11 mg/dL (0.72-1.25); HEMOGLOBIN 9.4 g/dl (13.5-18.0); MEAN CORPUSCULAR HEMOGLOBIN 33 pg (27.0-31.0); POTASSIUM 3.3 mmol/L (3.5-4.5)
[2021-07-02 07:38] LABS: HEMATOCRIT 27.4 % (42.0-52.0)
--- NOTE | 2021-07-02 09:16 | NUR ---
Met with patient this morning. He reports he is making slow but steady progress. He still feels dizzy when upright but not like it was before. He does admit to still feeling very anxious about standing but is willing to keep working to make steady progress. He reports that his son and daughter worked at his house over the weekend. He reports that his daughter needs a break to take care of herself.
--- NOTE | 2021-07-02 10:04 | NUR ---
Clinical updates faxed to Olvin at [facility]
--- NOTE | 2021-07-02 10:55 | NUR ---
Pt awake and alert upon entry, no C/O pain at this time. Shift assessments complete, left Pt call light in reach, bed in lowest position.
--- NOTE | 2021-07-02 20:00 | NUR ---
Patient is lying in bed with daughter in room. He is alert an oriented x 4. VSS, he feels better and satates he has been more active along the day. Tele and TEDS in place. Assessment completed. No further needs at this time. Call light within reach.
[2021-07-03 00:44] VITALS: BP 106/57; PULSE 61; TEMP 98.8
--- NOTE | 2021-07-03 02:30 | NUR ---
Patient had an incontinent BM. After revision,noted edema in his penis. Hospitalist notified. Patient was cleaned, linen and gown changed. Skin of penis was placed back in place. Continue monitoring.
[2021-07-03 04:34] VITALS: BP 123/63; PULSE 61; TEMP 97.8
--- NOTE | 2021-07-03 06:58 | NUR ---
Patient has had a calm night, all needs met. Shift report given to day shift RN.
[2021-07-03 07:05] LABS: CREATININE, serum 1.08 mg/dL (0.72-1.25); MAGNESIUM 2.3 mg/dL (1.6-2.6); POTASSIUM 4.1 mmol/L (3.5-4.5)
[2021-07-03 07:31] LABS: BASO % 1.2 % (0.0-2.0); EOS # 0.4 K/mm3 (0.0-0.7); EOS % 12.2 % (0-4.0); GRAN # 2.3 K/mm3 (1.4-6.5); GRAN % 66.7 % (42.2-75.2); LYMPH # 0.5 K/mm3 (1.2-3.4); LYMPH % 15.2 % (20.0-51.0); MEAN CELL VOLUME 97 fl (80.0-100.0); MEAN CORPUSCULAR HGB CONC 34 g/dl (33.0-37.0); MEAN PLATELET VOLUME 9.2 fl (7.4-10.4); MONO # 0.2 K/mm3 (0.1-0.6); MONO % 4.7 % (1.7-9.3); PLATELET COUNT 174 K/mm3 (130-400); RED BLOOD COUNT 2.86 M/mm3 (4.20-5.60); REDCELL DISTRIBUTION WIDTH-CV 14.1 % (11.5-14.5)
[2021-07-03 07:35] VITALS: BP 132/58; PULSE 60; TEMP 98.3
[2021-07-03 07:40] LABS: HEMATOCRIT 27.6 % (42.0-52.0); HEMOGLOBIN 9.4 g/dl (13.5-18.0); MEAN CORPUSCULAR HEMOGLOBIN 33 pg (27.0-31.0)
--- NOTE | 2021-07-03 10:01 | NUR ---
Pt awake and alert upon entry, no C/O pain at this time. Talkative. Shift assessment complete, left Pt call light in reach, bed in lowest position.
--- NOTE | 2021-07-03 11:08 | NUR ---
CHACORTA collaborated with the clinical team. The team is thinking possible discharge tomorrow. The patient has Medicare [facility] and will need auth for SNF. CHACORTA faxed the patient's records to [facility] for auth. CHACORTA contacted and updated the patient's daughter, Kavitha. Kavitha is in agreement to the plan. CHACORTA notified Olvin at [facility]. CHACORTA to fax updates to [facility]. Awaiting auth. *Discharge plan: [facility] SNF-awaiting insurance auth*
[2021-07-03 11:35] VITALS: BP 109/58; PULSE 60; TEMP 98.4
[2021-07-03 15:34] VITALS: BP 123/50; PULSE 60; TEMP 98.9
--- NOTE | 2021-07-03 16:44 | NUR ---
CHACORTA contacted [facility] to follow up on auth. The footwear sales representative reports that they did not receive the patient's information. CHACORTA provided him with the patient's name, birthdate, and insurance ID number. The footwear sales representative reports that it does not look like they manage his plan. CHACORTA notified Olvin at [facility].
[2021-07-03 19:41] VITALS: BP 128/69; PULSE 59; TEMP 98.6
--- NOTE | 2021-07-03 21:50 | NUR ---
Patient is lying in bed, alert and oriente x 4, denies pain, nausea or vomiting. Tele in place, paced, TEDs removed and reaplied. Increased edema in both feet. Assessment completed, meds provided. No further needs at this time. Call light within reach.
[2021-07-04 00:36] VITALS: BP 108/60; PULSE 59; TEMP 98.1
[2021-07-04 04:43] VITALS: BP 118/65; PULSE 59; TEMP 98
--- NOTE | 2021-07-04 06:17 | NUR ---
Pt has been stable along the night. He complained of pain in his left foot related to TEDs compression. TEDS removed. BLE edema increased. Shift report will be given to day RN.
[2021-07-04 06:44] LABS: BASO % 0.7 % (0.0-2.0); EOS # 0.4 K/mm3 (0.0-0.7); EOS % 13.1 % (0-4.0); GRAN # 1.8 K/mm3 (1.4-6.5); GRAN % 59.4 % (42.2-75.2); LYMPH # 0.6 K/mm3 (1.2-3.4); LYMPH % 20.3 % (20.0-51.0); MEAN CELL VOLUME 99 fl (80.0-100.0); MEAN CORPUSCULAR HGB CONC 33 g/dl (33.0-37.0); MEAN PLATELET VOLUME 9.7 fl (7.4-10.4); MONO # 0.2 K/mm3 (0.1-0.6); MONO % 6.2 % (1.7-9.3); PLATELET COUNT 170 K/mm3 (130-400); RED BLOOD COUNT 2.73 M/mm3 (4.20-5.60); REDCELL DISTRIBUTION WIDTH-CV 14.2 % (11.5-14.5)
[2021-07-04 06:46] LABS: MEAN CORPUSCULAR HEMOGLOBIN 33 pg (27.0-31.0)
[2021-07-04 07:09] LABS: CALCIUM 7.8 mg/dL (8.4-10.2); CREATININE, serum 0.97 mg/dL (0.72-1.25); MAGNESIUM 2.2 mg/dL (1.6-2.6); POTASSIUM 3.7 mmol/L (3.5-4.5)
[2021-07-04 07:36] VITALS: BP 133/66; PULSE 60; TEMP 98.2
[2021-07-04] MEDS ORDERED: NORTHERA300 PO (09:53)
[2021-07-04] MEDS ORDERED: SODIUM CHLORIDE1 GM PO (09:54)
--- NOTE | 2021-07-04 10:02 | NUR ---
Pt awake upon entry to room, no C/O pain at this time. Shift assessment comlete, left Pt call light in reach, bed in lowest position.
--- NOTE | 2021-07-04 11:17 | NUR ---
First visit from the grinding room inspector. No needs right now.
[2021-07-04 11:38] VITALS: BP 129/41; PULSE 59; TEMP 98.1
[2021-07-04 12:14] VITALS: BP 130/65; PULSE 63; TEMP 98
--- NOTE | 2021-07-04 12:56 | NUR ---
CHACORTA attended clinical rounds. The hospitalist is ready to discharge the patient today. CHACORTA followed up with the patient and presented and read the IM form outloud to him. The patient verbalized understanding and signed the form. CHACORTA provided him with a copy. The patient is in agreement with going to [facility]. [facility] provided CHACORTA with a phone number to call to check the patient's health plan. CHACORTA contacted the number to Medicare [employer]. The quality audit representative reports that the patient's plan does not require prior auth. CHACORTA notified Olvin at [facility]. Olvin reports that they are able to accept the patient. The patient is to discharge today, 07/04, to [facility] for a skilled stay. Transportation was scheduled at 1300, via [facility]. CHACORTA informed the patient's RN and his daughter, Kavitha, of the transport time. They were both agreeable to the time. No additional needs at this time.
--- NOTE | 2021-07-04 13:20 | NUR ---
Pt transferred to [facility], SNF. Pt transported via [facility] transportation assets.
== END 2021-07-04 13:20 | DRG 57 ==
LOC: COL.ER → MEDICAL 02:36
PROVIDERS: Family Medicine; Physician Assistant; Student in an Organized Health Care Education/Training Program; ADMIT Family Medicine
DX: G20 Parkinson's disease (principal); I82.531 Chronic embolism and thrombosis of right popliteal vein; I82.511 Chronic embolism and thrombosis of right femoral vein; I50.32 Chronic diastolic (congestive) heart failure; N17.9 Acute kidney failure, unspecified; E87.1 Hypo-osmolality and hyponatremia; K56.7 Ileus, unspecified; I95.1 Orthostatic hypotension; E78.5 Hyperlipidemia, unspecified; N40.0 Benign prostatic hyperplasia without lower urinary tract symptoms; I49.5 Sick sinus syndrome; I48.0 Paroxysmal atrial fibrillation; D35.2 Benign neoplasm of pituitary gland; H10.9 Unspecified conjunctivitis; I11.0 Hypertensive heart disease with heart failure; K59.09 Other constipation; G62.9 Polyneuropathy, unspecified; D72.819 Decreased white blood cell count, unspecified; D64.9 Anemia, unspecified; E87.6 Hypokalemia; M75.101 Unspecified rotator cuff tear or rupture of right shoulder, not specified as traumatic; Z20.822 Contact with and (suspected) exposure to COVID-19; Z95.0 Presence of cardiac pacemaker; Z79.82 Long term (current) use of aspirin; Z23 Encounter for immunization
CPT/HCPCS: 99231-AI; 99232-AI; 99233-AI; 99239; A9270; G0378; J1650; J7030